=== PATIENT | male | born 2000 | race American Indian/Alaskan Native ===

== ENCOUNTER 2021-11-08 11:50 | Inpatient (IN) | payer SELFPAY ==
[2021-11-08] MEDS ORDERED: ONDANSETRON 4 MG/2 ML INJ IV ONE ×2 (14:21→19:35)
[2021-11-08] MEDS ORDERED: MORPHINE 4 MG/1 ML INJ IV ONE ×2 (14:22→19:34)
[2021-11-08 15:29] LABS: Basophils % (Auto) 0.3 % (0.0-1.8); Eosinophils % (Auto) 0.1 % (0.0-4.3); Hematocrit 39.7 % (35.5-45.6); Hemoglobin 12.8 gm/dl (11.8-15.2); Lymphocytes # (Auto) 2.5 K/mm3 (1.2-5.4); Lymphocytes % (Auto) 24.6 % (13.4-35.0); Mean Corpuscular HGB Conc 32 % (32-34); Mean Corpuscular Volume 92 fl (84-94); Monocytes # (Auto) 1.2 K/mm3 (0.0-0.8); Monocytes % (Auto) 12.1 % (0.0-7.3); Platelet Count 475 K/mm3 (140-440); Red Cell Distribution Width 14.5 % (13.2-15.2)
[2021-11-08 16:44] LABS: Alanine Aminotransferase 13 units/L (7-56); Albumin 3.6 g/dL (3.9-5); BUN/Creatinine Ratio 9; Blood Urea Nitrogen 8 mg/dL (9-20); Calcium 8.5 mg/dL (8.4-10.2); Hemolysis Index 35
[2021-11-08 17:30] LABS: Bilirubin,Urine NEG (Negative); Blood,Urine MOD (Negative); Color,Urine Yellow (Yellow); Mucus,Urine FEW /HPF
--- NOTE | 2021-11-08 19:02 | Cat Scan Report ---
CT ABDOMEN AND PELVIS WITH IV CONTRAST INDICATION: abd pain 100 ML OMNI 300 . COMPARISON: None available. TECHNIQUE: Axial CT images were obtained through the abdomen and pelvis after 100 mL Omnipaque [address] scans at this location are performed using CT dose reduction for ALARA by means of automated e xposure control. FINDINGS -- ABDOMEN: Lung Bases: No acute abnormality. Heart appears mildly enlarged Liver: Normal. Gallbladder: Removed. Bile Ducts: Normal. Pancreas: Normal. Spleen: Normal. Adrenals: Normal. Right Kidney and Proximal Ureter: Normal. Left Kidney and Proximal Ureter: Normal. Stomach and Bowel: Normal. Lymph Nodes: Prominent periaortic retroperitoneal adenopathy throughout the abdomen and pelvis. Adeno harsh extends into both iliac and obturator cristel chains.. Aorta: No significant abnormality. IVC: Normal. Additional Findings: None. FINDINGS -- PELVIS: Urinary Bladder and Distal Ureters: Normal. Reproductive Organs: No acute abnormality. Appendix: Normal. Bowel: There is a peripherally enhancing fluid collection surrounding the lateral and posterior aspects of the distal rectum.. Free Fluid: None. Lymph Nodes: Severe bilateral inguinal adenopathy.. Additional Findings: None. Skeletal System: No acute abnormality. IMPRESSION: 1. Large perirectal abscess measuring about 6 x 2 cm, as outlined above. 2. Moderate to severe bilateral inguinal adenopathy. Severe intra-abdominal and intrapelvic retroperi toneal adenopathy. 3. Cardiomegaly. Signer Name: Abe Shelley MD Signed: 11/08/2021 6:58 PM Workstation Name: [id number]
[2021-11-08] MEDS ORDERED: PIPERACIL/TAZOBACTA 4.5/NS 100 4.5 GM/100 ML VIAL IV ONE (19:35)
[2021-11-08] MEDS ORDERED: SODIUM CHLORIDE 0.9% 1000 ML 1,000 ML IV SCH (19:45)
--- NOTE | 2021-11-08 20:03 | Emergency Department Report ---
ED Abdominal Pain HPI - General Chief Complaint: Abdominal Pain Stated Complaint: PAIN,DISCOMFORT Time Seen by Provider: 11/08/21 14:12 Source: patient Mode of arrival: Ambulatory Limitations: No Limitations - History of Present Illness Initial Comments: 21-year-old black male patient with a past medical history of HIV positive which was just diagnosed last year and for which he is not currently taking any medication presents to the emergency department for evaluation of 4-day history of worsening abdominal pain and rectal pain. He states that for the past 4 days he has not been able to have a bowel movement. He states that whenever he attempts to have a bowel movement he has severe pain to his rectal area and it seems like just liquid comes out but no stool. He denies fever nausea vomiting penile discharge. He states that pain is at its worse is 8 out of 10. MD Complaint: abdominal pain -: Gradual, days(s) (4) Location: LLQ, RLQ Severity: severe Severity scale (0 -10): 7 Quality: aching Consistency: constant Associated Symptoms: constipation. denies: nausea, vomiting, fever, dysuria, hematemesis, hematochezia, melena, hematuria - Related Data Allergies Allergy/AdvReac Type Severity Reaction Status Date / Time No Known Allergies Allergy Verified 11/08/21 14:03 ED Review of Systems ROS: Stated complaint: PAIN,DISCOMFORT Other details as noted in HPI Comment: All other systems reviewed and negative Constitutional: diaphoresis. denies: chills, fever, weakness Respiratory: denies: cough, shortness of breath, SOB with exertion, SOB at rest, wheezing Cardiovascular: denies: chest pain, palpitations, dyspnea on exertion, edema, syncope Endocrine: no symptoms reported Gastrointestinal: abdominal pain, constipation. denies: nausea, vomiting, diarrhea, hematemesis, melena, hematochezia Genitourinary: denies: urgency, dysuria, frequency, hematuria, discharge, te sticular pain Skin: denies: lesions Neurological: denies: headache, weakness ED Past Medical Hx - Past Medical History Previous Medical History?: No Hx HIV: Yes - Surgical History Past Surgical History?: No ED Physical Exam - General Limitations: No Limitations General appearance: alert, in no apparent distress - Head Head exam: Present: atraumatic, normocephalic - Eye Eye exam: Present: normal appearance. Absent: conjunctival injection - Neck Neck exam: Present: normal inspection - Respiratory Respiratory exam: Present: normal lung sounds bilaterally. Absent: respiratory distress, wheezes, rales, chest wall tenderness, accessory muscle use - Cardiovascular Cardiovascular Exam: Present: regular rate, normal heart sounds - GI/Abdominal GI/Abdominal exam: Present: soft, tenderness (Right lower and left lower quadrants), normal bowel sounds. Absent: distended, guarding, rebound, rigid - Extremities Exam Extremities exam: Present: normal inspection, full ROM - Back Exam Back exam: Present: normal inspection, full ROM. Absent: tenderness, CVA tenderness (R), CVA tenderness (L) - Neurological Exam Neurological exam: Present: alert, oriented X3 - Psychiatric Psychiatric exam: Present: normal affect, normal mood - Skin Skin exam: Present: warm, dry, intact ED Course Vital Signs 11/08/21 11/08/21 13:55 20:07 Temperature 98.7 F Pulse Rate 95 H Respiratory 14 20 Rate Blood Pressure 118/66 O2 Sat by Pulse 98 Oximetry ED Medical Decision Making - Lab Data Result diagrams: 11/08/21 15:11 11/08/21 15:11 - Radiology Data Radiology results: report reviewed CT abdomen and pelvis positive for large 6 cm x 2 cm perirectal abscess - Medical Decision Making 21-year-old black male patient with a past medical history of HIV positive which was just diagnosed last year and for which he is not currently taking any medication presents to the emergency department for evaluation of 4-day history of worsening abdominal pain and rectal pain. He states that for the past 4 days he has not been able to have a bowel movement. He states that whenever he attempts to have a bowel movement he has severe pain to his rectal area and it seems like just liquid comes out but no stool. He denies fever nausea vomiting penile discharge. He states that pain is at its worse is [address] abdomen and pelvis positive for large 6 cm x 2 cm perirectal abscess. Case discussed with Dr. Palacios general surgery who states that patient should be admitted for IV antibiotics overnight and possibly surgical evacuation of abscess in the a.m. Call placed to Dr. Anne ROSAS for admission. Plan was discussed with patient who agreed with and understood plan of care. Critical care attestation.: If time is entered above; I have spent that time in minutes in the direct care of this critically ill patient, excluding procedure time. ED Disposition Clinical Impression: Perirectal abscess Disposition: ADMITTED INPATIENT Is pt being admited?: Yes Does the pt Need Aspirin: No Additional Instructions: Patient to be admitted by [facility] service for general surgery to see in the a.m. Referrals: PRIMARY CARE, [Primary Care Provider] - 3-5 Days Time of Disposition: 20:53
[2021-11-08] MEDS ORDERED: ACETAMINOPHEN 325 MG TAB PO PRN (21:50)
[2021-11-08] MEDS ORDERED: ALBUTEROL 2.5 MG/3 ML NEBU IH PRN (21:50)
[2021-11-08] MEDS ORDERED: ONDANSETRON 4 MG/2 ML INJ IV PRN (21:50)
--- NOTE | 2021-11-08 21:59 | History and Physical Report ---
History of Present Illness Date of examination: 11/08/21 Date of admission: 11/08/21 Chief complaint: Abdominal and rectal pain History of present illness: 21-year-old black male history of HIV positive not on any retroviral medication was brought to the emergency department for evaluation of 4-day history of worsening abdominal pain and rectal pain. He states that for the past 4 days he has not been able to have a bowel movement. He states that whenever he attempts to have a bowel movement he has severe pain to his rectal area and it seems like just liquid comes out but no stool. He denies fever nausea vomiting penile discharge. He states that pain is at its worse is 8 out of 10. In the emergency room patient WBC is 10.2, CT abdomen and pelvis positive for large 6 cm x 2 cm perirectal abscess. Case discussed with Dr. Mix general surgery who states that patient should be admitted for IV antibiotics overnight and possibly surgical evacuation of abscess in the a.m. Past History Past Medical History: HIV/AIDS, other Medications and Allergies Allergies Allergy/AdvReac Type Severity Reaction Status Date / Time No Known Allergies Allergy Verified 11/08/21 14:03 Active Meds: Active Medications Sodium Chloride (Nacl 0.9% 1000 Ml) 1,000 mls @ 150 mls/hr IV DIRECT GARRETT Review of Systems Gastrointestinal: abdominal pain, constipation, other (Rectal pain) Exam - Constitutional Vitals: Temp Pulse Resp BP Pulse Ox 98.7 F 95 H 20 118/66 98 11/08/21 13:55 11/08/21 13:55 11/08/21 20:07 11/08/21 13:55 11/08/21 13:55 General appearance: Present: no acute distress, well-nourished - EENT Eyes: Present: PERRL ENT: hearing intact, clear oral mucosa - Neck Neck: Present: supple, normal ROM - Respiratory Respiratory effort: normal Respiratory: bilateral: diminished - Cardiovascular Heart Sounds: Present: S1 & S2. Absent: rub, click - Extremities Extremities: pulses symmetrical, No edema Peripheral Pulses: within normal limits - Abdominal General gastrointestinal: Present: soft, non-tender, non-distended, normal bowel sounds Male genitourinary: Present: normal - Integumentary Integumentary: Present: clear, warm, dry - Musculoskeletal Musculoskeletal: gait normal, strength equal bilaterally - Psychiatric Psychiatric: appropriate mood/affect, intact judgment & insight - Neurologic Neurologic: CNII-XII intact, moves all extremities Results - Labs CBC & Chem 7: 11/08/21 15:11 11/08/21 15:11 Labs: Laboratory Last Values WBC 10.2 K/mm3 (4.5-11.0) 11/08/21 15:11 RBC 4.30 M/mm3 (3.65-5.03) 11/08/21 15:11 Hgb 12.8 gm/dl (11.8-15.2) 11/08/21 15:11 Hct 39.7 % (35.5-45.6) 11/08/21 15:11 MCV 92 fl (84-94) 11/08/21 15:11 MCH 30 pg (28-32) 11/08/21 15:11 MCHC 32 % (32-34) 11/08/21 15:11 RDW 14.5 % (13.2-15.2) 11/08/21 15:11 Plt Count 475 K/mm3 (140-440) H 11/08/21 15:11 Lymph % (Auto) 24.6 % (13.4-35.0) 11/08/21 15:11 [place] % (Auto) 12.1 % (0.0-7.3) H 11/08/21 15:11 Eos % (Auto) 0.1 % (0.0-4.3) 11/08/21 15:11 Baso % (Auto) 0.3 % (0.0-1.8) 11/08/21 15:11 Lymph # (Auto) 2.5 K/mm3 (1.2-5.4) 11/08/21 15:11 [place] # (Auto) 1.2 K/mm3 (0.0-0.8) H 11/08/21 15:11 Eos # (Auto) 0.0 K/mm3 (0.0-0.4) 11/08/21 15:11 Baso # (Auto) 0.0 K/mm3 (0.0-0.1) 11/08/21 15:11 Seg Neutrophils % 62.9 % (40.0-70.0) 11/08/21 15:11 Seg Neutrophils # 6.4 K/mm3 (1.8-7.7) 11/08/21 15:11 Sodium 135 mmol/L (137-145) L 11/08/21 15:11 Potassium 4.1 mmol/L (3.6-5.0) 11/08/21 15:11 Chloride 99.4 mmol/L (98-107) 11/08/21 15:11 Carbon Dioxide 24 mmol/L (22-30) 11/08/21 15:11 Anion Gap 16 mmol/L 11/08/21 15:11 BUN 8 mg/dL (9-20) L 11/08/21 15:11 Creatinine 0.9 mg/dL (0.8-1.3) 11/08/21 15:11 Estimated GFR > 60 ml/min 11/08/21 15:11 BUN/Creatinine Ratio 9 % 11/08/21 15:11 Glucose 85 mg/dL (75-100) 11/08/21 15:11 Calcium 8.5 mg/dL (8.4-10.2) 11/08/21 15:11 Total Bilirubin 0.50 mg/dL (0.1-1.2) 11/08/21 15:11 AST 25 units/L (5-40) 11/08/21 15:11 ALT 13 units/L (7-56) 11/08/21 15:11 Alkaline Phosphatase 89 units/L (35-129) 11/08/21 15:11 Total Protein 8.5 g/dL (6.3-8.2) H 11/08/21 15:11 Albumin 3.6 g/dL (3.9-5) L 11/08/21 15:11 Albumin/Globulin Ratio 0.7 % 11/08/21 15:11 Lipase 21 units/L (13-60) 11/08/21 15:11 Urine Color Yellow (Yellow) 11/08/21 Unknown Urine Turbidity Clear (Clear) 11/08/21 Unknown Urine pH 5.0 (5.0-7.0) 11/08/21 Unknown Ur Specific [place] 1.021 (1.003-1.030) 11/08/21 Unknown Urine Protein 30 mg/dl mg/dL (Negative) 11/08/21 Unknown Urine Glucose (UA) Neg mg/dL (Negative) 11/08/21 Unknown Urine Ketones Neg mg/dL (Negative) 11/08/21 Unknown Urine Blood Mod (Negative) 11/08/21 Unknown Urine Nitrite Neg (Negative) 11/08/21 Unknown Urine Bilirubin Neg (Negative) 11/08/21 Unknown Urine Urobilinogen 4.0 mg/dL (<2.0) 11/08/21 Unknown Ur Leukocyte Esterase Neg (Negative) 11/08/21 Unknown Urine WBC (Auto) 2.0 /HPF (0.0-6.0) 11/08/21 Unknown Urine RBC (Auto) 1.0 /HPF (0.0-6.0) 11/08/21 Unknown U Epithel Cells (Auto) < 1.0 /HPF (0-13.0) 11/08/21 Unknown Urine Mucus Few /HPF 11/08/21 Unknown - Imaging and Cardiology CT scan - abdomen: report reviewed Assessment and Plan VTE prophylaxis?: Chemical Plan of care discussed with patient/family: Yes - Patient Problems (1) Perirectal abscess Current Visit: Yes Status: Acute Plan to address problem: [facility] NPO. D5 half-normal saline at the rate of 100 cc/h. Morphine 2 mg IV every 6 4 hours as needed. Zosyn 4.5 g IV every 8 hours. Flagyl 500 mg IV every 8 hours. Reconsult surgery for evaluation (2) Abdominal pain Current Visit: Yes Status: Acute Plan to address problem: NPO. D5 half-normal saline at the rate of 100 cc/h. Morphine 2 mg IV every 6 4 hours as needed. Zosyn 4.5 g IV every 8 hours. Flagyl 500 mg IV every 8 hours. Reconsult surgery for evaluation (3) HIV (human immunodeficiency virus infection) Current Visit: Yes Status: Acute Plan to address problem: Stable. Patient not on any HIV medication. Outpatient follow-up with infectious disease (4) DVT prophylaxis Current Visit: Yes Status: Acute Plan to address problem: Heparin 5000 units subcu every 12 hours for DVT prophylaxis. Pepcid 20 mg IV every 12 hours for GI prophylaxis. Patient is a full code
[2021-11-08] MEDS ORDERED: metroNIDAZOLE/NS 500 MG/100 ML 500 MG/100 ML BAG IV SCH (22:00)
[2021-11-09] MEDS: MORPHINE 2 MG/1 ML INJ IV PRN ×2 (01:11→09:53)
[2021-11-09] MEDS: HYDROmorphone 1 MG/1 ML INJ IV PRN (02:25)
[2021-11-09] MEDS: PIPERACIL/TAZOBACTA 4.5/NS 100 4.5 GM/100 ML VIAL IV SCH ×2 (05:13→13:30)
[2021-11-09 05:48] LABS: Basophils % (Auto) 0.4 % (0.0-1.8); Eosinophils % (Auto) 0.2 % (0.0-4.3); Hematocrit 34.3 % (35.5-45.6); Hemoglobin 11.6 gm/dl (11.8-15.2); Lymphocytes # (Auto) 1.5 K/mm3 (1.2-5.4); Lymphocytes % (Auto) 19.6 % (13.4-35.0); Mean Corpuscular HGB Conc 34 % (32-34); Mean Corpuscular Volume 90 fl (84-94); Monocytes # (Auto) 0.6 K/mm3 (0.0-0.8); Monocytes % (Auto) 7.9 % (0.0-7.3); Platelet Count 408 K/mm3 (140-440); Red Blood Count 3.81 M/mm3 (3.65-5.03); Red Cell Distribution Width 14.2 % (13.2-15.2)
[2021-11-09 06:15] LABS: BUN/Creatinine Ratio 7; Blood Urea Nitrogen 7 mg/dL (9-20); Calcium 8.1 mg/dL (8.4-10.2); Hemolysis Index 0
[2021-11-09] MEDS: D5W/0.45% NACL 1,000 ML IV SCH (06:25)
[2021-11-09] MEDS: IPRATROPIUM/ALBUTEROL SULFATE 3 ML AMPUL.NEB IH SCH ×3 (09:52→14:34)
[2021-11-09] MEDS: HEPARIN 5,000 UNIT/1 ML VIAL SUB-Q SCH ×3 (09:52→23:42)
[2021-11-09] MEDS: FAMOTIDINE 20 MG/2 ML INJ IV SCH ×3 (09:52→23:42)
[2021-11-09] MEDS ORDERED: LACTATED RINGERS 0 ML ONE (10:34)
--- NOTE | 2021-11-09 11:18 | Consultation ---
History of Present Illness Consult date: 11/09/21 Chief complaint: rectal pain - History of present illness History of present illness: 21-year-old male who was diagnosed last year with HIV, however not currently receiving treatment, who presents to the emergency room for 4 days of rectal pain. The pain has gradually gotten worse. It is an 8 out of 10 in severity. He has never had anything like this before. It is difficult to have a bowel movement due to severe pain. He is passing liquid bowel movements. No fevers, chills, nausea, vomiting at home. Patient is febrile here. CT scan of the abdomen and pelvis reveals a 6 cm perirectal abscess. Surgery is consulted for evaluation. Past History Past Medical History: HIV/AIDS, other Medications and Allergies Allergies Allergy/AdvReac Type Severity Reaction Status Date / Time No Known Allergies Allergy Verified 11/08/21 14:03 Home Medications Medication Instructions Recorded Confirmed Last Taken Type No Known Home Medications [No 11/09/21 11/09/21 Unknown History Reported Home Medications] Active Meds: Active Medications Acetaminophen (Acetaminophen 325 Mg Tab) 650 mg PO Q4H PRN PRN Reason: Pain MILD(1-3)/Fever >100.5/BUENROSTRO Albuterol (Albuterol 2.5 Mg/3 Ml Nebu) 2.5 mg IH Q3HRT PRN PRN Reason: Shortness Of Breath Albuterol/Ipratropium (Ipratropium/Albuterol Sulfate 3 Ml Ampul.Neb) 1 ampul IH Q6HRT [facility] Last Admin: 11/09/21 09:57 Dose: 1 ampul Famotidine (Famotidine 20 Mg/2 Ml Inj) 20 mg IV BID [facility] Last Admin: 11/09/21 09:52 Dose: 20 mg Heparin Sodium (Porcine) (Heparin 5,000 Unit/1 Ml Vial) 5,000 unit SUB-Q Q12HR [facility] Last Admin: 11/09/21 09:52 Dose: 5,000 unit Hydromorphone HCl (Hydromorphone 1 Mg/1 Ml Inj) 0.5 mg IV Q3H PRN PRN Reason: Pain , Severe (7-10) Last Admin: 11/09/21 02:25 Dose: 0.5 mg Sodium Chloride (Nacl 0.9% 1000 Ml) 1,000 mls @ 150 mls/hr IV DIRECT [facility] Last Admin: 11/09/21 02:26 Dose: 150 mls/hr Dextrose/Sodium Chloride (D5/0.45ns) 1,000 mls @ 100 mls/hr IV DIRECT GARRETT Last Admin: 11/09/21 06:25 Dose: 100 mls/hr Piperacillin Sod/Tazobactam Sod (Zosyn/Ns 4.5gm/100ml) 4.5 gm in 100 mls @ 200 mls/hr IV Q8H GARRETT; Protocol Last Admin: 11/09/21 05:13 Dose: 200 mls/hr Morphine Sulfate (Morphine 2 Mg/1 Ml Inj) 2 mg IV Q4H PRN PRN Reason: Pain, Moderate (4-6) Last Admin: 11/09/21 09:53 Dose: 2 mg Ondansetron HCl (Ondansetron 4 Mg/2 Ml Inj) 4 mg IV Q8H PRN PRN Reason: Nausea And Vomiting Sodium Chloride (Sodium Chloride 0.9% 10 Ml Flush Syringe) 10 ml IV BID GARRETT Last Admin: 11/09/21 09:53 Dose: 10 ml Sodium Chloride (Sodium Chloride 0.9% 10 Ml Flush Syringe) 10 ml IV PRN PRN PRN Reason: LINE FLUSH Review of Systems All systems: negative (10 point ROS performed and negative except that listed in HPI) Exam Vital Signs Temp Pulse Resp BP Pulse Ox 98.7 F 95 H 14 118/66 98 11/08/21 13:55 11/08/21 13:55 11/08/21 13:55 11/08/21 13:55 11/08/21 13:55 Narrative exam: Gen.: Awake, alert, oriented x3. No apparent distress ENT: Trachea midline. No lymphadenopathy. No scleral icterus or conjunctival pallor CV: S1, S2 present Respiratory: No audible wheezes Extremities: No clubbing, cyanosis, edema Rectal: With high rigger present: External exam is grossly normal. Rectal exam reveals fluctuance posteriorly with tenderness to palpation. No drainage. No gross blood. Normal rectal tone. Results - Labs 11/09/21 04:10 11/09/21 04:10 Abnormal lab results 11/08/21 11/08/21 11/09/21 Range/Units 15:11 15:11 04:10 Hgb 11.6 L (11.8-15.2) gm/dl Hct 34.3 L (35.5-45.6) % Plt Count 475 H (140-440) K/mm3 [place] % (Auto) 12.1 H 7.9 H (0.0-7.3) % [place] # (Auto) 1.2 H (0.0-0.8) K/mm3 Seg Neutrophils % 71.9 H (40.0-70.0) % Sodium 135 L (137-145) mmol/L BUN 8 L (9-20) mg/dL Calcium (8.4-10.2) mg/dL Total Protein 8.5 H (6.3-8.2) g/dL Albumin 3.6 L (3.9-5) g/dL 11/09/21 Range/Units 04:10 Hgb (11.8-15.2) gm/dl Hct (35.5-45.6) % Plt Count (140-440) K/mm3 [place] % (Auto) (0.0-7.3) % [place] # (Auto) (0.0-0.8) K/mm3 Seg Neutrophils % (40.0-70.0) % Sodium 132 L (137-145) mmol/L BUN 7 L (9-20) mg/dL Calcium 8.1 L (8.4-10.2) mg/dL Total Protein (6.3-8.2) g/dL Albumin (3.9-5) g/dL Diabetes panel 11/08/21 11/09/21 Range/Units 15:11 04:10 Sodium 135 L 132 L (137-145) mmol/L Potassium 4.1 3.7 (3.6-5.0) mmol/L Chloride 99.4 99.4 (98-107) mmol/L Carbon Dioxide 24 24 (22-30) mmol/L BUN 8 L 7 L (9-20) mg/dL Creatinine 0.9 1.0 (0.8-1.3) mg/dL Glucose 85 87 (75-100) mg/dL Calcium 8.5 8.1 L (8.4-10.2) mg/dL AST 25 (5-40) units/L ALT 13 (7-56) units/L Alkaline Phosphatase 89 (35-129) units/L Total Protein 8.5 H (6.3-8.2) g/dL Albumin 3.6 L (3.9-5) g/dL Calcium panel 11/08/21 11/09/21 Range/Units 15:11 04:10 Calcium 8.5 8.1 L (8.4-10.2) mg/dL Albumin 3.6 L (3.9-5) g/dL Pituitary panel 11/08/21 11/09/21 Range/Units 15:11 04:10 Sodium 135 L 132 L (137-145) mmol/L Potassium 4.1 3.7 (3.6-5.0) mmol/L Chloride 99.4 99.4 (98-107) mmol/L Carbon Dioxide 24 24 (22-30) mmol/L BUN 8 L 7 L (9-20) mg/dL Creatinine 0.9 1.0 (0.8-1.3) mg/dL Glucose 85 87 (75-100) mg/dL Calcium 8.5 8.1 L (8.4-10.2) mg/dL Adrenal panel 11/08/21 11/09/21 Range/Units 15:11 04:10 Sodium 135 L 132 L (137-145) mmol/L Potassium 4.1 3.7 (3.6-5.0) mmol/L Chloride 99.4 99.4 (98-107) mmol/L Carbon Dioxide 24 24 (22-30) mmol/L BUN 8 L 7 L (9-20) mg/dL Creatinine 0.9 1.0 (0.8-1.3) mg/dL Glucose 85 87 (75-100) mg/dL Calcium 8.5 8.1 L (8.4-10.2) mg/dL Total Bilirubin 0.50 (0.1-1.2) mg/dL AST 25 (5-40) units/L ALT 13 (7-56) units/L Alkaline Phosphatase 89 (35-129) units/L Total Protein 8.5 H (6.3-8.2) g/dL Albumin 3.6 L (3.9-5) g/dL - Imaging CT scan - abdomen: report reviewed, image reviewed CT scan - pelvis: report reviewed, image reviewed Assessment and Plan 21 yo M with 1. HIV - not on medication 2. perirectal abscess 3. sepsis 2/2 #2 Plan: 1. NPO 2. IVF 3. IV abx 4. prn pain control 5. bowel regimen 6. recommend drainage of perirectal abscess. Fluctuance palpable on exam so will attempt transrectal drainage in OR. Discussed with patient and questions answered. Consent obtained. 7. If unable to drain surgically, IR available for percutaneous drainage - discu ssed with Dr. Montez. Thank you for this consultation. Please call with any questions or concerns. Evaluation and treatment of this patient was during the time of the national and state emergency arising from COVID19 coronavirus pandemic. Treatment and procedures performed meet the current and available best practice and guidelines for patient during the COVID pandemic.
[2021-11-09] MEDS ORDERED: HYDROmorphone 1 MG/1 ML INJ IV PRN ×2 (12:24)
[2021-11-09] MEDS ORDERED: ONDANSETRON 4 MG/2 ML INJ IV PRN (12:24)
[2021-11-09] MEDS ORDERED: ACETAMINOPHEN 500 MG TAB PO ONE (12:24)
[2021-11-09] MEDS ORDERED: MORPHINE 2 MG/1 ML INJ IV ONE (12:25)
--- NOTE | 2021-11-09 12:25 | Anesthesia Day of Surgery ---
Anesthesia Day of Surgery - Day of Surgery Patient Examined: Yes Patient H&P Reviewed: Yes Patient is NPO: Yes
--- NOTE | 2021-11-09 12:26 | Anesthesia Consultation ---
Anesthesia Consult and Med Hx Date of service: 11/09/21 - Airway Anesthetic Teeth Evaluation: Good ROM Head & Neck: Adequate Mental/Hyoid Distance: Adequate Mallampati Class: Class II Intubation Access Assessment: Good - Pre-Operative Health Status ASA Pre-Surgery Classification: ASA2 Proposed Anesthetic Plan: General - Pulmonary Hx Smoking: Yes Hx Asthma: No COPD: No Hx Pneumonia: No - Central Nervous System Hx Psychiatric Problems: Yes - Gastrointestinal Hx Ulcer: Yes Hx Gastroesophageal Reflux Disease: No - Endocrine Hx End Stage Renal Disease: No - Hematic Hx Sickle Cell Disease: No - Other Systems Hx Cancer: No Hx Obesity: No - Additional Comments Anesthesia Medical History Comments: HIV+
[2021-11-09] MEDS ORDERED: MIDAZOLAM 2 MG/2 ML INJ IV NR (13:00)
[2021-11-09] MEDS ORDERED: CELECOXIB 200 MG CAP PO NR (13:00)
[2021-11-09] MEDS ORDERED: BUPIVACAINE/PF (0.5%) 5 MG/1 ML 30 ML VIAL INFILTRATI ONE ×2 (13:27→17:48)
[2021-11-09] MEDS ORDERED: ROCURONIUM 50 MG/5 ML INJ IV ONE (17:17)
[2021-11-09] MEDS ORDERED: LIDOCAINE MPF (2%) 20 MG/1 ML VIAL 5 ML ONE (17:17)
[2021-11-09] MEDS ORDERED: fentaNYL 100 MCG/2 ML INJ ONE (17:17)
[2021-11-09] MEDS ORDERED: propofoL 200 MG/20 ML VIAL IV ONE (17:17)
[2021-11-09] MEDS ORDERED: SODIUM CHLORIDE 0.9% IRR 1,500 ML BOTTLE IR ONE (17:48)
[2021-11-09] MEDS ORDERED: ONDANSETRON 4 MG/2 ML INJ ONE (17:52)
[2021-11-09] MEDS ORDERED: dexAMETHasone 20 MG/5 ML VIAL ONE (17:52)
[2021-11-09] MEDS ORDERED: NEOSTIGMINE 10MG/10 ML INJ MDV ONE (17:52)
[2021-11-09] MEDS ORDERED: GLYCOPYRROLATE 0.4 MG/2 ML INJ ONE (17:52)
[2021-11-09] MEDS ORDERED: KETOROLAC 30 MG/1 ML INJ ONE (17:52)
[2021-11-09] MEDS ORDERED: LACTATED RINGERS 1,000 ML ONE (18:20)
--- NOTE | 2021-11-09 18:26 | Operative Report ---
Operative Report Operative Report: Date of surgery: 11/09/21 Preoperative diagnosis: rectal abscess Postoperative diagnosis: same as above Procedure: rectal exam under anesthesia, drainage of rectal abscess Surgeon: Bailey Mix DO Anesthesia: GETA, local Findings: large horseshoe posterior rectal abscess approximately 3 cm from anal verge EBL: 5 cc Specimen: abscess culture Complications: none Disposition:stable to PACU HPI and indication: Patient is a 21-year-old male with a past medical history of HIV, not currently on any treatment, who presented to the emergency room with rectal pain. He was found to have a large rectal abscess on CT scan of the abdomen and pelvis. It was recommended the patient undergo drainage of the rectal abscess. All risk, benefits, alternatives to surgery were discussed and questions answered. Consent obtained Procedure in detail: The patient was identified in the preoperative area, take back to the operating room. Anesthesia was induced on the stretcher and patient transferred to the operating room table in prone, jacknife position. All bony prominences were padded appropriately. The buttocks were taped apart and rectum prepped in sterile fashion. The area was draped. Time out performed. A fansler retractor was placed into the rectum. In doing so, the abscess spontaneously started to drain purulent fluid. The opening to the cavity was located posterior aspect of rectum and to the left of midline and probed. The opening was at least 1 cm wide. The cavity extended from the left of midline in the posterior aspect of the rectum and crossed midline to the right. All loculations were broken up bluntly and all purulent fluid evacuated. Cultures obtained. Area irrigated with saline and hemostasis ensured. Perianal block performed using 10cc of Local anesthetic. The area was cleansed and a peripad applied, secured with mesh underwear. At the end of the case all sponge, instrument, sharp counts were correct x2 Patient was transferred to the stretcher, extubated and taken to PACU in stable condition.
--- NOTE | 2021-11-09 19:13 | Post Anesthesia Evaluation ---
- Post Anesthesia Evaluation Patient Participated: Yes Airway Patent: Yes Stable Respiratory Function: Yes Nausea/Vomiting: No Temp > 96.8F: Yes Pain Manageable: Yes Adequeate Hydration: Yes Anesthesia Complications: No Block Receding Appropriately: Not Applicable Patient on Ventilator: No
--- NOTE | 2021-11-09 21:01 | Progress Note ---
Assessment and Plan Assessment and plan: 21-year-old black male history of HIV positive not on any retroviral medication was brought to the emergency department for evaluation of 4-day history of worsening abdominal pain and rectal pain. He states that for the past 4 days he has not been able to have a bowel movement. He states that whenever he attempts to have a bowel movement he has severe pain to his rectal area and it seems like just liquid comes out but no stool. He denies fever nausea vomiting penile discharge. He states that pain is at its worse is 8 out of 10. In the emergency room patient WBC is 10.2, CT abdomen and pelvis positive for large 6 cm x 2 cm perirectal abscess. Case discussed with Dr. Mix general surgery who states that patient should be admitted for IV antibiotics overnight and possibly surgical evacuation of abscess in the a.m. (1) Perirectal abscess Current Visit: Yes Status: Acute Plan to address problem: Admit the patient to the [facility]. NPO. D5 half-normal saline at the rate of 100 cc/h. Morphine 2 mg IV every 6 4 hours as needed. Zosyn 4.5 g IV every 8 hours. Flagyl 500 mg IV every 8 hours. Reconsult surgery for evaluation (2) Abdominal pain Current Visit: Yes Status: Acute Plan to address problem: NPO. D5 half-normal saline at the rate of 100 cc/h. Morphine 2 mg IV every 6 4 hours as needed. Zosyn 4.5 g IV every 8 hours. Flagyl 500 mg IV every 8 hours. Reconsult surgery for evaluation (3) HIV (human immunodeficiency virus infection) Current Visit: Yes Status: Acute Plan to address problem: Stable. Patient not on any HIV medication. Outpatient follow-up with infectious disease (4) DVT prophylaxis Current Visit: Yes Status: Acute Plan to address problem: Heparin 5000 units subcu every 12 hours for DVT prophylaxis. Pepcid 20 mg IV every 12 hours for GI prophylaxis. Patient is a full code Hospitalist Physical - Constitutional Vitals: Temp Pulse Resp BP Pulse Ox 97.7 F 50 L 16 105/68 100 11/09/21 18:35 11/09/21 18:35 11/09/21 18:35 11/09/21 18:35 11/09/21 18:35 General appearance: Present: no acute distress, well-nourished Results - Labs CBC & Chem 7: 11/09/21 04:10 11/09/21 04:10 Labs: Laboratory Last Values WBC 7.7 K/mm3 (4.5-11.0) 11/09/21 04:10 RBC 3.81 M/mm3 (3.65-5.03) 11/09/21 04:10 Hgb 11.6 gm/dl (11.8-15.2) L 11/09/21 04:10 Hct 34.3 % (35.5-45.6) L 11/09/21 04:10 MCV 90 fl (84-94) 11/09/21 04:10 MCH 31 pg (28-32) 11/09/21 04:10 MCHC 34 % (32-34) 11/09/21 04:10 RDW 14.2 % (13.2-15.2) 11/09/21 04:10 Plt Count 408 K/mm3 (140-440) 11/09/21 04:10 Lymph % (Auto) 19.6 % (13.4-35.0) 11/09/21 04:10 [place] % (Auto) 7.9 % (0.0-7.3) H 11/09/21 04:10 Eos % (Auto) 0.2 % (0.0-4.3) 11/09/21 04:10 Baso % (Auto) 0.4 % (0.0-1.8) 11/09/21 04:10 Lymph # (Auto) 1.5 K/mm3 (1.2-5.4) 11/09/21 04:10 [place] # (Auto) 0.6 K/mm3 (0.0-0.8) 11/09/21 04:10 Eos # (Auto) 0.0 K/mm3 (0.0-0.4) 11/09/21 04:10 Baso # (Auto) 0.0 K/mm3 (0.0-0.1) 11/09/21 04:10 Seg Neutrophils % 71.9 % (40.0-70.0) H 11/09/21 04:10 Seg Neutrophils # 5.5 K/mm3 (1.8-7.7) 11/09/21 04:10 Sodium 132 mmol/L (137-145) L 11/09/21 04:10 Potassium 3.7 mmol/L (3.6-5.0) 11/09/21 04:10 Chloride 99.4 mmol/L (98-107) 11/09/21 04:10 Carbon Dioxide 24 mmol/L (22-30) 11/09/21 04:10 Anion Gap 12 mmol/L 11/09/21 04:10 BUN 7 mg/dL (9-20) L 11/09/21 04:10 Creatinine 1.0 mg/dL (0.8-1.3) 11/09/21 04:10 Estimated GFR > 60 ml/min 11/09/21 04:10 BUN/Creatinine Ratio 7 % 11/09/21 04:10 Glucose 87 mg/dL (75-100) 11/09/21 04:10 Calcium 8.1 mg/dL (8.4-10.2) L 11/09/21 04:10 Total Bilirubin 0.50 mg/dL (0.1-1.2) 11/08/21 15:11 AST 25 units/L (5-40) 11/08/21 15:11 ALT 13 units/L (7-56) 11/08/21 15:11 Alkaline Phosphatase 89 units/L (35-129) 11/08/21 15:11 Total Protein 8.5 g/dL (6.3-8.2) H 11/08/21 15:11 Albumin 3.6 g/dL (3.9-5) L 11/08/21 15:11 Albumin/Globulin Ratio 0.7 % 11/08/21 15:11 Lipase 21 units/L (13-60) 11/08/21 15:11 Urine Color Yellow (Yellow) 11/08/21 Unknown Urine Turbidity Clear (Clear) 11/08/21 Unknown Urine pH 5.0 (5.0-7.0) 11/08/21 Unknown Ur Specific [place] 1.021 (1.003-1.030) 11/08/21 Unknown Urine Protein 30 mg/dl mg/dL (Negative) 11/08/21 Unknown Urine Glucose (UA) Neg mg/dL (Negative) 11/08/21 Unknown Urine Ketones Neg mg/dL (Negative) 11/08/21 Unknown Urine Blood Mod (Negative) 11/08/21 Unknown Urine Nitrite Neg (Negative) 11/08/21 Unknown Urine Bilirubin Neg (Negative) 11/08/21 Unknown Urine Urobilinogen 4.0 mg/dL (<2.0) 11/08/21 Unknown Ur Leukocyte Esterase Neg (Negative) 11/08/21 Unknown Urine WBC (Auto) 2.0 /HPF (0.0-6.0) 11/08/21 Unknown Urine RBC (Auto) 1.0 /HPF (0.0-6.0) 11/08/21 Unknown U Epithel Cells (Auto) < 1.0 /HPF (0-13.0) 11/08/21 Unknown Urine Mucus Few /HPF 11/08/21 Unknown Fernandez/IV: Voiding Method Toilet Active Medications - Current Medications Current Medications: Generic Name Dose Route Start Last Admin Trade Name Freq PRN Reason Stop Dose Admin Acetaminophen 650 mg 11/08/21 21:50 Acetaminophen 325 Mg Tab PO Q4H PRN Pain MILD(1-3)/Fever >100.5/BUENROSTRO Hydrocodone Bitart/Acetaminophen 1 each 11/09/21 18:13 Hydrocodone/Acetaminophen 5-325 Mg Tab PO Q4H PRN Pain, Moderate (4-6) Albuterol 2.5 mg 11/08/21 21:50 Albuterol 2.5 Mg/3 Ml Nebu IH Q3HRT PRN Shortness Of Breath Albuterol/Ipratropium 1 ampul 11/09/21 02:00 11/09/21 14:34 Ipratropium/Albuterol Sulfate 3 Ml Ampul.Neb IH Not Given Q6HRT GARRETT Celecoxib 400 mg 11/09/21 13:00 11/09/21 12:36 Celecoxib 200 Mg Cap PO 11/09/21 23:59 400 mg PREOP NR Administration Famotidine 20 mg 11/08/21 22:00 11/09/21 09:52 Famotidine 20 Mg/2 Ml Inj IV 20 mg BID GARRETT Administration Heparin Sodium (Porcine) 5,000 unit 11/08/21 22:00 11/09/21 09:52 Heparin 5,000 Unit/1 Ml Vial SUB-Q 5,000 unit Q12HR GARRETT Administration Hydromorphone HCl 0.5 mg 11/08/21 21:50 11/09/21 02:25 Hydromorphone 1 Mg/1 Ml Inj IV 0.5 mg Q3H PRN Administration Pain , Severe (7-10) Hydromorphone HCl 0.25 mg 11/09/21 12:24 Hydromorphone 1 Mg/1 Ml Inj IV Q10MIN PRN Pain, Moderate (4-6) Hydromorphone HCl 0.5 mg 11/09/21 12:24 Hydromorphone 1 Mg/1 Ml Inj IV Q10MIN PRN Pain , Severe (7-10) Dextrose/Sodium Chloride 1,000 mls @ 100 mls/hr 11/08/21 22:00 11/09/21 06:25 D5/0.45ns IV 100 mls/hr DIRECT GARRETT Administration Piperacillin Sod/Tazobactam Sod 4.5 gm in 100 mls @ 200 mls/hr 11/08/21 22:00 11/09/21 13:30 Zosyn/Ns 4.5gm/100ml IV 200 mls/hr Q8H GARRETT Administration Protocol Midazolam HCl 2 mg 11/09/21 13:00 11/09/21 14:12 Midazolam 2 Mg/2 Ml Inj IV 11/09/21 23:59 2 mg PREOP NR Administration Ondansetron HCl 4 mg 11/08/21 21:50 Ondansetron 4 Mg/2 Ml Inj IV Q8H PRN Nausea And Vomiting Ondansetron HCl 4 mg 11/09/21 12:24 Ondansetron 4 Mg/2 Ml Inj IV ONCE PRN Nausea And Vomiting Sodium Chloride 10 ml 11/08/21 22:00 11/09/21 09:53 Sodium Chloride 0.9% 10 Ml Flush Syringe IV 10 ml BID GARRETT Administration Sodium Chloride 10 ml 11/08/21 21:50 Sodium Chloride 0.9% 10 Ml Flush Syringe IV PRN PRN LINE FLUSH Nutrition/Malnutrition Assess - Dietary Evaluation Nutrition/Malnutrition Findings: Nutrition Notes Start: 11/09/21 17:35 Freq: Status: Active Protocol: Document 11/09/21 17:35 JAH (Rec: 11/09/21 17:54 JAH [id number]) Nutrition Notes Need for Assessment generated from: air transportation provider Initial or Follow up Assessment Other Pertinent Diagnosis Perirectal Abscess, Abdominal Pain, HIV/AIDS. Current Diet NPO (since 11/08 21:51). Labs/Tests 11/09: Na 132, BUN 7, Ca 8.1. Pertinent Medications 11/09: D5/0.45ns 1000 ml @ 100 ml/hr, others nutritionally unremarkable. Height 5 ft 10 in Weight 81.64 kg [place] Body Weight (kg) 75.45 BMI 25.8 Intake Prior to Admission Good Weight change and time frame Pt denies having loss body weight [employer]. Weight Status Overweight Subjective/Other Information RD consult for skin risk assessment. Pt currently on NPO. Pt shows area of concern that has been addressed for skin risk, according to Progress notes. Percent of energy/protein needs met: Pt currently on NPO. Burn Absent Trauma Absent GI Symptoms Other Food Allergy No Skin Integrity/Comment Perirectal area. Current % PO Other Minimum of two criteria No #1 Nutrition Diagnosis No nutrition diagnosis at this time Is patient on ventilator? No Is Patient Ambulatory and/or Out of Bed Yes REE-([place]. Jeor-ambulatory/OOB) [ 2362.945 NUTR.MSJOOB] Kcal/Kg value to use for calculation 20 Approximate Energy Requirements Using 1633 kcal/Kg Calculation Used for Recommendations Kcal/kg Additional Notes Protein: 1.5-2 g/Kg; 123-164 g /day. Fluids: 1 ml/Kcal, or as per MD. Nutrition Intervention Follow-Up By: 11/13/21 Additional Comments When pertinent, monitor food tolerance, %PO intake of meals , and BM.
[2021-11-10] MEDS: IPRATROPIUM/ALBUTEROL SULFATE 3 ML AMPUL.NEB IH SCH ×5 (01:39→20:53)
[2021-11-10] MEDS: HYDROmorphone 1 MG/1 ML INJ IV PRN ×2 (05:51→19:36)
[2021-11-10 07:56] LABS: Basophils % (Auto) 0.3 % (0.0-1.8); Lymphocytes # (Auto) 0.8 K/mm3 (1.2-5.4); Lymphocytes % (Auto) 11.4 % (13.4-35.0); Mean Corpuscular HGB Conc 31 % (32-34); Mean Corpuscular Volume 92 fl (84-94); Monocytes # (Auto) 0.4 K/mm3 (0.0-0.8); Monocytes % (Auto) 5.1 % (0.0-7.3); Platelet Count 456 K/mm3 (140-440); Red Blood Count 4.24 M/mm3 (3.65-5.03); Red Cell Distribution Width 14.9 % (13.2-15.2)
[2021-11-10 07:57] LABS: Hemoglobin 11.9 gm/dl (11.8-15.2)
[2021-11-10 08:11] LABS: BUN/Creatinine Ratio 14; Blood Urea Nitrogen 15 mg/dL (9-20); Calcium 8.5 mg/dL (8.4-10.2); Hemolysis Index 0
[2021-11-10] MEDS: HYDROcodone/ACETAMINOPHEN 5-325 MG TAB PO PRN ×2 (09:25→19:02)
[2021-11-10] MEDS: FAMOTIDINE 20 MG/2 ML INJ IV SCH ×2 (09:25→22:18)
[2021-11-10] MEDS: HEPARIN 5,000 UNIT/1 ML VIAL SUB-Q SCH ×2 (09:26→22:18)
[2021-11-10] MEDS: PIPERACIL/TAZOBACTA 4.5/NS 100 4.5 GM/100 ML VIAL IV SCH ×2 (11:34→11:35)
--- NOTE | 2021-11-10 12:25 | Consultation ---
History of Present Illness - Reason for Consult Consult date: 11/10/21 HIV, perirectal abscess Requesting physician: AMERICA GALVEZ - History of Present Illness The patient is a 21-year-old male with HIV, not on any medicines was admitted with abdominal rectal pain, CT revealed a perirectal abscess, seen by general surgery and underwent drainage on 11/09/2021. Infectious diseases was consulted for additional evaluation. Patient reports feeling better. HIV was diagnosed last year, states he has never been on medications due to being homeless. Risk factors include IVDU as well as bisexual behavior. Review of Systems: Per HPI Past History Past Medical History: HIV/AIDS, other Medications and Allergies Allergies Allergy/AdvReac Type Severity Reaction Status Date / Time No Known Allergies Allergy Verified 11/08/21 14:03 Home Medications Medication Instructions Recorded Confirmed Last Taken Type No Known Home Medications [No 11/09/21 11/09/21 Unknown History Reported Home Medications] Active Meds: Active Medications Acetaminophen (Acetaminophen 325 Mg Tab) 650 mg PO Q4H PRN PRN Reason: Pain MILD(1-3)/Fever >100.5/BUENROSTRO Hydrocodone Bitart/Acetaminophen (Hydrocodone/Acetaminophen 5-325 Mg Tab) 1 each PO Q4H PRN PRN Reason: Pain, Moderate (4-6) Last Admin: 11/10/21 09:25 Dose: 1 each Albuterol (Albuterol 2.5 Mg/3 Ml Nebu) 2.5 mg IH Q3HRT PRN PRN Reason: Shortness Of Breath Albuterol/Ipratropium (Ipratropium/Albuterol Sulfate 3 Ml Ampul.Neb) 1 ampul IH Q6HRT [facility] Last Admin: 11/10/21 09:32 Dose: Not Given Famotidine (Famotidine 20 Mg/2 Ml Inj) 20 mg IV BID [facility] Last Admin: 11/10/21 09:25 Dose: 20 mg Heparin Sodium (Porcine) (Heparin 5,000 Unit/1 Ml Vial) 5,000 unit SUB-Q Q12HR [facility] Last Admin: 11/10/21 09:26 Dose: 5,000 unit Hydromorphone HCl (Hydromorphone 1 Mg/1 Ml Inj) 0.5 mg IV Q3H PRN PRN Reason: Pain , Severe (7-10) Last Admin: 11/10/21 05:51 Dose: 0.5 mg Dextrose/Sodium Chloride (D5/0.45ns) 1,000 mls @ 100 mls/hr IV DIRECT GARRETT Last Admin: 11/09/21 06:25 Dose: 100 mls/hr Piperacillin Sod/Tazobactam Sod (Zosyn/Ns 4.5gm/100ml) 4.5 gm in 100 mls @ 200 mls/hr IV Q8H GARRETT; Protocol Last Admin: 11/10/21 11:35 Dose: Not Given Ondansetron HCl (Ondansetron 4 Mg/2 Ml Inj) 4 mg IV Q8H PRN PRN Reason: Nausea And Vomiting Ondansetron HCl (Ondansetron 4 Mg/2 Ml Inj) 4 mg IV ONCE PRN PRN Reason: Nausea And Vomiting Sodium Chloride (Sodium Chloride 0.9% 10 Ml Flush Syringe) 10 ml IV BID GARRETT Last Admin: 11/10/21 11:38 Dose: 10 ml Sodium Chloride (Sodium Chloride 0.9% 10 Ml Flush Syringe) 10 ml IV PRN PRN PRN Reason: LINE FLUSH Physical Examination - Physical Exam Narrative exam: Physical Exam: Constitutional: Alert, cooperative. No acute distress Head, Ears, Nose: Normocephalic, atraumatic. External ears, nose normal Eyes: Conjunctivae/corneas clear. No icterus. No ptosis. Neck: Supple, no meningeal signs Cardiovascular: S1, S2 + Respiratory: Good air entry, clear to auscultation bilaterally GI: Soft, non-tender; bowel sounds normal. No peritoneal signs Musculoskeletal: No pedal edema, no cyanosis. Skin: No rash or abscess Hem/Lymphatic: No palpable cervical or supraclavicular nodes. No lymphangitis Psych: Mood ok. Affect normal Neurological: Awake, alert, oriented. No gross abnormality - Constitutional Vitals: Vital Signs Temp Pulse Resp BP Pulse Ox 97.4 F L 48 L 17 93/41 98 11/09/21 23:11 11/10/21 07:52 11/10/21 07:52 11/09/21 23:11 11/10/21 08:41 Temperature -Last 24 Hours Temperature 97.4 F Temperature 97.7 F Temperature 97.0 F Temperature 98.0 F Temperature 98.4 F Results - Labs CBC & Chem 7: 11/10/21 06:38 11/10/21 06:38 Labs: Abnormal lab results 11/10/21 11/10/21 Range/Units 06:38 06:38 MCHC 31 L (32-34) % Plt Count 456 H (140-440) K/mm3 Lymph % (Auto) 11.4 L (13.4-35.0) % Lymph # (Auto) 0.8 L (1.2-5.4) K/mm3 Seg Neutrophils % 83.2 H (40.0-70.0) % Sodium 136 L (137-145) mmol/L Glucose 118 H (75-100) mg/dL Assessment and Plan Cultures: 11/09/2021 surgical culture: In process A/P: 21/M with: #Perirectal abscess: Status post drainage #HIV: Not on antiretroviral therapy. Diagnosed last year. #History of IVDU Recs: Antibiotics switched to IV ceftriaxone 2 g daily, PO Flagyl 500 mg TID, PO doxycycline 100 mg BID Follow-up surgical culture, if no growth, discharge on PO Augmentin 875 mg BID + PO doxycycline 100 mg BID x 7 days explained importance of HIV treatment, needs to follow up with [facility] Dean Cadena MD, FACP, [facility] O: [phone] F: [phone]
--- NOTE | 2021-11-10 14:16 | Progress Note ---
Assessment and Plan 21-year-old male status post rectal exam under anesthesia, drainage of rectal abscess, POD 1 Plan: 1. abscess cultures pending 2. abx per ID 3. sitz baths TID 4. Ok to dc from surgery standpoint once abx finalized by ID 5. Importance of follow-up in ID clinic discussed with patient for management of his HIV Thank you for this consultation. Please call with any questions or concerns. Evaluation and treatment of this patient was during the time of the national and state emergency arising from COVID19 coronavirus pandemic. Treatment and procedures performed meet the current and available best practice and guidelines for patient during the COVID pandemic. Subjective Date of service: 11/10/21 Narrative: Patient seen and examined. He is much improved. He denies pain. States there is been minimal bleeding on the dressing. He is already fully dressed and ready to go home. Afebrile. Objective Vital Signs - 12hr 11/10/21 11/10/21 11/10/21 05:37 07:52 08:41 Temperature 97.8 F Pulse Rate 43 L Pulse Rate [ 48 L Bilateral] Respiratory 18 Rate Respiratory 17 Rate [Bilateral ] Blood Pressure 100/55 O2 Sat by Pulse 100 98 Oximetry 11/10/21 11/10/21 12:01 13:28 Temperature 97.5 F L Pulse Rate 57 L Pulse Rate [ 48 L Bilateral] Respiratory 18 Rate Respiratory 19 Rate [Bilateral ] Blood Pressure 104/55 O2 Sat by Pulse 100 Oximetry - General physical appearance Narrative Exam: Gen.: Awake, alert, oriented x3. No apparent distress ENT: Trachea midline. No lymphadenopathy. No scleral icterus or conjunctival pallor CV: S1, S2 present Respiratory: No audible wheezes Extremities: No clubbing, cyanosis, edema - Labs 11/10/21 06:38 11/10/21 06:38 Diabetes panel 11/10/21 Range/Units 06:38 Sodium 136 L (137-145) mmol/L Potassium 4.7 D (3.6-5.0) mmol/L Chloride 102.0 (98-107) mmol/L Carbon Dioxide 24 (22-30) mmol/L BUN 15 (9-20) mg/dL Creatinine 1.1 (0.8-1.3) mg/dL Glucose 118 H (75-100) mg/dL Calcium 8.5 (8.4-10.2) mg/dL Calcium panel 11/10/21 Range/Units 06:38 Calcium 8.5 (8.4-10.2) mg/dL Pituitary panel 11/10/21 Range/Units 06:38 Sodium 136 L (137-145) mmol/L Potassium 4.7 D (3.6-5.0) mmol/L Chloride 102.0 (98-107) mmol/L Carbon Dioxide 24 (22-30) mmol/L BUN 15 (9-20) mg/dL Creatinine 1.1 (0.8-1.3) mg/dL Glucose 118 H (75-100) mg/dL Calcium 8.5 (8.4-10.2) mg/dL Adrenal panel 11/10/21 Range/Units 06:38 Sodium 136 L (137-145) mmol/L Potassium 4.7 D (3.6-5.0) mmol/L Chloride 102.0 (98-107) mmol/L Carbon Dioxide 24 (22-30) mmol/L BUN 15 (9-20) mg/dL Creatinine 1.1 (0.8-1.3) mg/dL Glucose 118 H (75-100) mg/dL Calcium 8.5 (8.4-10.2) mg/dL
[2021-11-10] MEDS: D5W/0.45% NACL 1,000 ML IV SCH (14:19)
[2021-11-10] MEDS: metroNIDAZOLE 500 MG TAB PO SCH ×2 (14:19→22:18)
[2021-11-10] MEDS: cefTRIAXone/NS 2 GM/100 ML 2 GM/100 ML BAG IV SCH (14:19)
[2021-11-10] MEDS: DOXYCYCLINE 100 MG CAP PO SCH ×2 (14:20→22:18)
--- NOTE | 2021-11-10 22:18 | Progress Note ---
Hospitalist Physical - Constitutional Vitals: Temp Pulse Resp BP Pulse Ox 97.8 F 74 18 101/46 98 11/10/21 21:56 11/10/21 21:56 11/10/21 21:56 11/10/21 21:56 11/10/21 21:56 General appearance: Present: no acute distress, well-nourished Results - Labs CBC & Chem 7: 11/10/21 06:38 11/10/21 06:38 Labs: Laboratory Last Values WBC 7.4 K/mm3 (4.5-11.0) 11/10/21 06:38 RBC 4.24 M/mm3 (3.65-5.03) 11/10/21 06:38 Hgb 11.9 gm/dl (11.8-15.2) 11/10/21 06:38 Hct 39.0 % (35.5-45.6) 11/10/21 06:38 MCV 92 fl (84-94) 11/10/21 06:38 MCH 28 pg (28-32) 11/10/21 06:38 MCHC 31 % (32-34) L 11/10/21 06:38 RDW 14.9 % (13.2-15.2) 11/10/21 06:38 Plt Count 456 K/mm3 (140-440) H 11/10/21 06:38 Lymph % (Auto) 11.4 % (13.4-35.0) L 11/10/21 06:38 [place] % (Auto) 5.1 % (0.0-7.3) 11/10/21 06:38 Eos % (Auto) 0.0 % (0.0-4.3) 11/10/21 06:38 Baso % (Auto) 0.3 % (0.0-1.8) 11/10/21 06:38 Lymph # (Auto) 0.8 K/mm3 (1.2-5.4) L 11/10/21 06:38 [place] # (Auto) 0.4 K/mm3 (0.0-0.8) 11/10/21 06:38 Eos # (Auto) 0.0 K/mm3 (0.0-0.4) 11/10/21 06:38 Baso # (Auto) 0.0 K/mm3 (0.0-0.1) 11/10/21 06:38 Seg Neutrophils % 83.2 % (40.0-70.0) H 11/10/21 06:38 Seg Neutrophils # 6.1 K/mm3 (1.8-7.7) 11/10/21 06:38 Sodium 136 mmol/L (137-145) L 11/10/21 06:38 Potassium 4.7 mmol/L (3.6-5.0) D 11/10/21 06:38 Chloride 102.0 mmol/L (98-107) 11/10/21 06:38 Carbon Dioxide 24 mmol/L (22-30) 11/10/21 06:38 Anion Gap 15 mmol/L 11/10/21 06:38 BUN 15 mg/dL (9-20) 11/10/21 06:38 Creatinine 1.1 mg/dL (0.8-1.3) 11/10/21 06:38 Estimated GFR > 60 ml/min 11/10/21 06:38 BUN/Creatinine Ratio 14 % 11/10/21 06:38 Glucose 118 mg/dL (75-100) H 11/10/21 06:38 Calcium 8.5 mg/dL (8.4-10.2) 11/10/21 06:38 Total Bilirubin 0.50 mg/dL (0.1-1.2) 11/08/21 15:11 AST 25 units/L (5-40) 11/08/21 15:11 ALT 13 units/L (7-56) 11/08/21 15:11 Alkaline Phosphatase 89 units/L (35-129) 11/08/21 15:11 Total Protein 8.5 g/dL (6.3-8.2) H 11/08/21 15:11 Albumin 3.6 g/dL (3.9-5) L 11/08/21 15:11 Albumin/Globulin Ratio 0.7 % 11/08/21 15:11 Lipase 21 units/L (13-60) 11/08/21 15:11 Urine Color Yellow (Yellow) 11/08/21 Unknown Urine Turbidity Clear (Clear) 11/08/21 Unknown Urine pH 5.0 (5.0-7.0) 11/08/21 Unknown Ur Specific [place] 1.021 (1.003-1.030) 11/08/21 Unknown Urine Protein 30 mg/dl mg/dL (Negative) 11/08/21 Unknown Urine Glucose (UA) Neg mg/dL (Negative) 11/08/21 Unknown Urine Ketones Neg mg/dL (Negative) 11/08/21 Unknown Urine Blood Mod (Negative) 11/08/21 Unknown Urine Nitrite Neg (Negative) 11/08/21 Unknown Urine Bilirubin Neg (Negative) 11/08/21 Unknown Urine Urobilinogen 4.0 mg/dL (<2.0) 11/08/21 Unknown Ur Leukocyte Esterase Neg (Negative) 11/08/21 Unknown Urine WBC (Auto) 2.0 /HPF (0.0-6.0) 11/08/21 Unknown Urine RBC (Auto) 1.0 /HPF (0.0-6.0) 11/08/21 Unknown U Epithel Cells (Auto) < 1.0 /HPF (0-13.0) 11/08/21 Unknown Urine Mucus Few /HPF 11/08/21 Unknown Microbiology: Microbiology 11/09/21 21:10 Rectum Anaerobic Culture - Preliminary 11/09/21 21:10 Rectum Surgical Culture - Preliminary Fernandez/IV: Voiding Method Urinal Active Medications - Current Medications Current Medications: Generic Name Dose Route Start Last Admin Trade Name Freq PRN Reason Stop Dose Admin Acetaminophen 650 mg 11/08/21 21:50 Acetaminophen 325 Mg Tab PO Q4H PRN Pain MILD(1-3)/Fever >100.5/BUENROSTRO Hydrocodone Bitart/Acetaminophen 1 each 11/09/21 18:13 11/10/21 19:02 Hydrocodone/Acetaminophen 5-325 Mg Tab PO 1 each Q4H PRN Administration Pain, Moderate (4-6) Albuterol 2.5 mg 11/08/21 21:50 Albuterol 2.5 Mg/3 Ml Nebu IH Q3HRT PRN Shortness Of Breath Albuterol/Ipratropium 1 ampul 11/09/21 02:00 11/10/21 20:53 Ipratropium/Albuterol Sulfate 3 Ml Ampul.Neb IH 1 ampul Q6HRT GARRETT Administration Doxycycline Hyclate 100 mg 11/10/21 13:00 11/10/21 14:20 Doxycycline 100 Mg Cap PO 100 mg BID GARRETT Administration Protocol Famotidine 20 mg 11/08/21 22:00 11/10/21 09:25 Famotidine 20 Mg/2 Ml Inj IV 20 mg BID GARRETT Administration Heparin Sodium (Porcine) 5,000 unit 11/08/21 22:00 11/10/21 09:26 Heparin 5,000 Unit/1 Ml Vial SUB-Q 5,000 unit Q12HR GARRETT Administration Hydromorphone HCl 0.5 mg 11/08/21 21:50 11/10/21 19:36 Hydromorphone 1 Mg/1 Ml Inj IV 0.5 mg Q3H PRN Administration Pain , Severe (7-10) Dextrose/Sodium Chloride 1,000 mls @ 100 mls/hr 11/08/21 22:00 11/10/21 14:19 D5/0.45ns IV 100 mls/hr DIRECT GARRETT Administration Ceftriaxone Sodium 2 gm in 100 mls @ 200 mls/hr 11/10/21 13:00 11/10/21 14:19 Rocephin/Ns 2 Gm/100 Ml IV 200 mls/hr Q24HR GARRETT Administration Protocol Metronidazole 500 mg 11/10/21 14:00 11/10/21 14:19 Metronidazole 500 Mg Tab PO 500 mg Q8HR GARRETT Administration Protocol Ondansetron HCl 4 mg 11/08/21 21:50 Ondansetron 4 Mg/2 Ml Inj IV Q8H PRN Nausea And Vomiting Ondansetron HCl 4 mg 11/09/21 12:24 Ondansetron 4 Mg/2 Ml Inj IV ONCE PRN Nausea And Vomiting Sodium Chloride 10 ml 11/08/21 22:00 11/10/21 11:38 Sodium Chloride 0.9% 10 Ml Flush Syringe IV 10 ml BID GARRETT Administration Sodium Chloride 10 ml 11/08/21 21:50 Sodium Chloride 0.9% 10 Ml Flush Syringe IV PRN PRN LINE FLUSH Nutrition/Malnutrition Assess - Dietary Evaluation Nutrition/Malnutrition Findings: Nutrition Notes Start: 11/09/21 17:35 Freq: Status: Active Protocol: Document 11/09/21 17:35 JAH (Rec: 11/09/21 17:54 JAH [id number]) Nutrition Notes Need for Assessment generated from: rn lpn lvn Initial or Follow up Assessment Other Pertinent Diagnosis Perirectal Abscess, Abdominal Pain, HIV/AIDS. Current Diet NPO (since 11/08 21:51). Labs/Tests 11/09: Na 132, BUN 7, Ca 8.1. Pertinent Medications 11/09: D5/0.45ns 1000 ml @ 100 ml/hr, others nutritionally unremarkable. Height 5 ft 10 in Weight 81.64 kg [place] Body Weight (kg) 75.45 BMI 25.8 Intake Prior to Admission Good Weight change and time frame Pt denies having loss body weight [employer]. Weight Status Overweight Subjective/Other Information RD consult for skin risk assessment. Pt currently on NPO. Pt shows area of concern that has been addressed for skin risk, according to Progress notes. Percent of energy/protein needs met: Pt currently on NPO. Burn Absent Trauma Absent GI Symptoms Other Food Allergy No Skin Integrity/Comment Perirectal area. Current % PO Other Minimum of two criteria No #1 Nutrition Diagnosis No nutrition diagnosis at this time Is patient on ventilator? No Is Patient Ambulatory and/or Out of Bed Yes REE-([facility]-ambulatory/OOB) [ 2362.945 NUTR.MSJOOB] Kcal/Kg value to use for calculation 20 Approximate Energy Requirements Using 1633 kcal/Kg Calculation Used for Recommendations Kcal/kg Additional Notes Protein: 1.5-2 g/Kg; 123-164 g /day. Fluids: 1 ml/Kcal, or as per MD. Nutrition Intervention Follow-Up By: 11/13/21 Additional Comments When pertinent, monitor food tolerance, %PO intake of meals , and BM.
[2021-11-11] MEDS: IPRATROPIUM/ALBUTEROL SULFATE 3 ML AMPUL.NEB IH SCH ×4 (03:41→21:26)
[2021-11-11] MEDS: metroNIDAZOLE 500 MG TAB PO SCH ×3 (06:20→21:17)
[2021-11-11] MEDS: cefTRIAXone/NS 2 GM/100 ML 2 GM/100 ML BAG IV SCH (09:03)
[2021-11-11] MEDS: DOXYCYCLINE 100 MG CAP PO SCH ×2 (09:03→21:17)
[2021-11-11] MEDS: FAMOTIDINE 20 MG TAB PO SCH ×2 (09:04→21:16)
[2021-11-11] MEDS: HEPARIN 5,000 UNIT/1 ML VIAL SUB-Q SCH ×2 (09:04→21:17)
[2021-11-11] MEDS: HYDROcodone/ACETAMINOPHEN 5-325 MG TAB PO PRN ×2 (09:04→18:23)
--- NOTE | 2021-11-11 20:28 | Progress Note ---
Hospitalist Physical - Constitutional Vitals: Temp Pulse Resp BP Pulse Ox 97.5 F L 67 18 109/49 100 11/11/21 17:50 11/11/21 17:50 11/11/21 19:23 11/11/21 17:50 11/11/21 17:50 General appearance: Present: no acute distress, well-nourished Results - Labs CBC & Chem 7: 11/10/21 06:38 11/10/21 06:38 Labs: Laboratory Last Values WBC 7.4 K/mm3 (4.5-11.0) 11/10/21 06:38 RBC 4.24 M/mm3 (3.65-5.03) 11/10/21 06:38 Hgb 11.9 gm/dl (11.8-15.2) 11/10/21 06:38 Hct 39.0 % (35.5-45.6) 11/10/21 06:38 MCV 92 fl (84-94) 11/10/21 06:38 MCH 28 pg (28-32) 11/10/21 06:38 MCHC 31 % (32-34) L 11/10/21 06:38 RDW 14.9 % (13.2-15.2) 11/10/21 06:38 Plt Count 456 K/mm3 (140-440) H 11/10/21 06:38 Lymph % (Auto) 11.4 % (13.4-35.0) L 11/10/21 06:38 [place] % (Auto) 5.1 % (0.0-7.3) 11/10/21 06:38 Eos % (Auto) 0.0 % (0.0-4.3) 11/10/21 06:38 Baso % (Auto) 0.3 % (0.0-1.8) 11/10/21 06:38 Lymph # (Auto) 0.8 K/mm3 (1.2-5.4) L 11/10/21 06:38 [place] # (Auto) 0.4 K/mm3 (0.0-0.8) 11/10/21 06:38 Eos # (Auto) 0.0 K/mm3 (0.0-0.4) 11/10/21 06:38 Baso # (Auto) 0.0 K/mm3 (0.0-0.1) 11/10/21 06:38 Seg Neutrophils % 83.2 % (40.0-70.0) H 11/10/21 06:38 Seg Neutrophils # 6.1 K/mm3 (1.8-7.7) 11/10/21 06:38 Sodium 136 mmol/L (137-145) L 11/10/21 06:38 Potassium 4.7 mmol/L (3.6-5.0) D 11/10/21 06:38 Chloride 102.0 mmol/L (98-107) 11/10/21 06:38 Carbon Dioxide 24 mmol/L (22-30) 11/10/21 06:38 Anion Gap 15 mmol/L 11/10/21 06:38 BUN 15 mg/dL (9-20) 11/10/21 06:38 Creatinine 1.1 mg/dL (0.8-1.3) 11/10/21 06:38 Estimated GFR > 60 ml/min 11/10/21 06:38 BUN/Creatinine Ratio 14 % 11/10/21 06:38 Glucose 118 mg/dL (75-100) H 11/10/21 06:38 Calcium 8.5 mg/dL (8.4-10.2) 11/10/21 06:38 Total Bilirubin 0.50 mg/dL (0.1-1.2) 11/08/21 15:11 AST 25 units/L (5-40) 11/08/21 15:11 ALT 13 units/L (7-56) 11/08/21 15:11 Alkaline Phosphatase 89 units/L (35-129) 11/08/21 15:11 Total Protein 8.5 g/dL (6.3-8.2) H 11/08/21 15:11 Albumin 3.6 g/dL (3.9-5) L 11/08/21 15:11 Albumin/Globulin Ratio 0.7 % 11/08/21 15:11 Lipase 21 units/L (13-60) 11/08/21 15:11 Urine Color Yellow (Yellow) 11/08/21 Unknown Urine Turbidity Clear (Clear) 11/08/21 Unknown Urine pH 5.0 (5.0-7.0) 11/08/21 Unknown Ur Specific [place] 1.021 (1.003-1.030) 11/08/21 Unknown Urine Protein 30 mg/dl mg/dL (Negative) 11/08/21 Unknown Urine Glucose (UA) Neg mg/dL (Negative) 11/08/21 Unknown Urine Ketones Neg mg/dL (Negative) 11/08/21 Unknown Urine Blood Mod (Negative) 11/08/21 Unknown Urine Nitrite Neg (Negative) 11/08/21 Unknown Urine Bilirubin Neg (Negative) 11/08/21 Unknown Urine Urobilinogen 4.0 mg/dL (<2.0) 11/08/21 Unknown Ur Leukocyte Esterase Neg (Negative) 11/08/21 Unknown Urine WBC (Auto) 2.0 /HPF (0.0-6.0) 11/08/21 Unknown Urine RBC (Auto) 1.0 /HPF (0.0-6.0) 11/08/21 Unknown U Epithel Cells (Auto) < 1.0 /HPF (0-13.0) 11/08/21 Unknown Urine Mucus Few /HPF 11/08/21 Unknown Microbiology: Microbiology 11/09/21 21:10 Rectum Surgical Culture - Preliminary Gram Negative Shmuel Fernandez/IV: Voiding Method Toilet Active Medications - Current Medications Current Medications: Generic Name Dose Route Start Last Admin Trade Name Freq PRN Reason Stop Dose Admin Acetaminophen 650 mg 11/08/21 21:50 Acetaminophen 325 Mg Tab PO Q4H PRN Pain MILD(1-3)/Fever >100.5/BUENROSTRO Hydrocodone Bitart/Acetaminophen 1 each 11/09/21 18:13 11/11/21 18:23 Hydrocodone/Acetaminophen 5-325 Mg Tab PO 1 each Q4H PRN Administration Pain, Moderate (4-6) Albuterol 2.5 mg 11/08/21 21:50 Albuterol 2.5 Mg/3 Ml Nebu IH Q3HRT PRN Shortness Of Breath Albuterol/Ipratropium 1 ampul 11/09/21 02:00 11/11/21 14:39 Ipratropium/Albuterol Sulfate 3 Ml Ampul.Neb IH Not Given Q6HRT [facility] Doxycycline Hyclate 100 mg 11/10/21 13:00 11/11/21 09:03 Doxycycline 100 Mg Cap PO 100 mg BID GARRETT Administration Protocol Famotidine 20 mg 11/11/21 10:00 11/11/21 09:04 Famotidine 20 Mg Tab PO 20 mg BID GARRETT Administration Heparin Sodium (Porcine) 5,000 unit 11/08/21 22:00 11/11/21 09:04 Heparin 5,000 Unit/1 Ml Vial SUB-Q 5,000 unit Q12HR GARRETT Administration Hydromorphone HCl 0.5 mg 11/08/21 21:50 11/10/21 19:36 Hydromorphone 1 Mg/1 Ml Inj IV 0.5 mg Q3H PRN Administration Pain , Severe (7-10) Dextrose/Sodium Chloride 1,000 mls @ 100 mls/hr 11/08/21 22:00 11/10/21 14:19 D5/0.45ns IV 100 mls/hr DIRECT GARRETT Administration Ceftriaxone Sodium 2 gm in 100 mls @ 200 mls/hr 11/10/21 13:00 11/11/21 09:03 Rocephin/Ns 2 Gm/100 Ml IV 200 mls/hr Q24HR GARRETT Administration Protocol Metronidazole 500 mg 11/10/21 14:00 11/11/21 14:15 Metronidazole 500 Mg Tab PO 500 mg Q8HR GARRETT Administration Protocol Ondansetron HCl 4 mg 11/08/21 21:50 Ondansetron 4 Mg/2 Ml Inj IV Q8H PRN Nausea And Vomiting Ondansetron HCl 4 mg 11/09/21 12:24 Ondansetron 4 Mg/2 Ml Inj IV ONCE PRN Nausea And Vomiting Sodium Chloride 10 ml 11/08/21 22:00 11/11/21 09:04 Sodium Chloride 0.9% 10 Ml Flush Syringe IV 10 ml BID GARRETT Administration Sodium Chloride 10 ml 11/08/21 21:50 Sodium Chloride 0.9% 10 Ml Flush Syringe IV PRN PRN LINE FLUSH Nutrition/Malnutrition Assess - Dietary Evaluation Nutrition/Malnutrition Findings: Nutrition Notes Start: 11/09/21 17:35 Freq: Status: Active Protocol: Document 11/09/21 17:35 JAH (Rec: 11/09/21 17:54 JAH [email or web address]) Nutrition Notes 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 Current Diet NPO (since 11/08 21:51). Labs/Tests 11/09: Na 132, BUN 7, Ca 8.1. Pertinent Medications 11/09: D5/0.45ns 1000 ml @ 100 ml/hr, others nutritionally unremarkable. Height 5 ft 10 in Weight 81.64 kg [place] Body Weight (kg) 75.45 BMI 25.8 Intake Prior to Admission Good Weight change and time frame Pt denies having loss body weight [employer]OP[employer]IC[employer]. Weight Status Overweight Subjective/Other Information RD consult for skin risk assessment. Pt currently on NPO. Pt shows area of concern that has been addressed for skin risk, according to Progress notes. Percent of energy/protein needs met: Pt currently on NPO. Burn Absent Trauma Absent GI Symptoms Other Food Allergy No Skin Integrity/Comment Perirectal area. Current % PO Other Minimum of two criteria No #1 Nutrition Diagnosis No nutrition diagnosis at this time Is patient on ventilator? No Is Patient Ambulatory and/or Out of Bed Yes REE-([place]. Jeor-ambulatory/OOB) [ 2362.945 [id number]] Kcal/Kg value to use for calculation 20 Approximate Energy Requirements Using 1633 kcal/Kg Calculation Used for Recommendations Kcal/kg Additional Notes Protein: 1.5-2 g/Kg; 123-164 g /day. Fluids: 1 ml/Kcal, or as per MD. Nutrition Intervention Follow-Up By: 11/13/21 Additional Comments When pertinent, monitor food tolerance, %PO intake of meals , and BM.
[2021-11-12] MEDS: IPRATROPIUM/ALBUTEROL SULFATE 3 ML AMPUL.NEB IH SCH ×3 (01:36→14:39)
[2021-11-12] MEDS: metroNIDAZOLE 500 MG TAB PO SCH ×2 (05:13→13:46)
[2021-11-12 06:45] VITALS: BP 103/62
[2021-11-12] MEDS: DOXYCYCLINE 100 MG CAP PO SCH (09:22)
[2021-11-12] MEDS: HEPARIN 5,000 UNIT/1 ML VIAL SUB-Q SCH (09:22)
[2021-11-12] MEDS: FAMOTIDINE 20 MG TAB PO SCH (09:23)
[2021-11-12] MEDS: cefTRIAXone/NS 2 GM/100 ML 2 GM/100 ML BAG IV SCH (09:24)
--- NOTE | 2021-11-12 17:04 | Discharge Summary ---
Providers - Providers Date of Admission: 11/08/21 21:50 Attending physician: MYLENE GALVEZ MD 11/08/21 21:50 Consult to Physician [CONS] Routine Comment: Consulting Provider: MAYCO NARAYANAN Physician Instructions: Reason For Exam: Perirectal abscess 11/10/21 08:51 Consult to Physician [CONS] Routine Comment: Consulting Provider: TAYLA CEDILLO Physician Instructions: Reason For Exam: Rectal abscess, HIV off meds Primary care physician: HEPATOLOGIST Hospitalization Condition: Stable Hospital course: 21-year-old male with a past medical history of HIV, not currently on any treatment, who presented to the emergency room with rectal pain. He was found to have a large rectal abscess on CT scan of the abdomen and pelvis. Dr. Narayanan, general surgeon was consulted and underwent IND via rectum and noted to have a large horseshoe posterior rectal abscess approximately 3 cm from annual verge on 11/09/2021. Patient did well postoperatively with immediate relief of the pain. There was no significant drainage postoperatively. Patient did have some BMs. Fever resolved. Blood cultures were negative. He was tolerating diet. Surgical cultures grew streptococci, pansensitive as well as E. coli. ID consulted and followed. Patient was receiving IV antibiotic therapy pending E. coli culture sensitivity report. His discharge was deferred awaiting E. coli antibiotic sensitivity report, however patient left AMA. Large projectile abscess, s/p I&D History of HIV infection off antiretroviral therapy, patient was advised to seek therapy at [facility]. Patient left AMA Disposition: LEFT AGAINST MEDICAL ADVICE Exam - Constitutional Vitals: Temp Pulse Resp BP Pulse Ox 98.2 F 55 L 18 103/62 98 11/12/21 04:09 11/12/21 04:09 11/12/21 04:09 11/12/21 04:09 11/12/21 08:44 General appearance: Present: no acute distress - EENT Eyes: Present: EOM intact ENT: clear oral mucosa - Neck Neck: Present: supple - Respiratory Respiratory effort: normal Respiratory: bilateral: CTA - Cardiovascular Rhythm: regular - Extremities Extremities: No edema - Abdominal General gastrointestinal: Present: soft, non-tender, non-distended, normal bowel sounds - Integumentary Integumentary: Absent: rash - Musculoskeletal Musculoskeletal: strength equal bilaterally - Neurologic Neurologic: no focal deficits, moves all extremities Plan Follow up with: PRIMARY CARE, [Primary Care Provider] - 3-5 Days
== END 2021-11-12 15:36 | disposition left against medical advice (07) | DRG 970 ==
LOC: ED 11:50 → 3A 21:50
PROVIDERS: ADMIT Hospitalist; ATTEND Internal Medicine
PROC: 0D9P0ZZ Drainage of Rectum, Open Approach (ICD-10-PCS; principal; 2021-11-09)
DX: A41.9 Sepsis, unspecified organism (principal); B20 Human immunodeficiency virus [HIV] disease; K61.1 Rectal abscess
CPT/HCPCS: 36415; 74177; 80048; 80053; 81001; 83690; 85025; 87075; 87076; 87116; 87186; 94640; G0378; J1815; J3490; J7070; J7120; Q0162; J0696; J1100; J1170; J1644; J1885; J2250; J2270; J2405; J2543; J2704; J2710; J3010; J7030; Q9967

== ENCOUNTER 2022-05-18 10:32 | Emergency (ER) | payer SELFPAY ==
[2022-05-18] MEDS ORDERED: SODIUM CHLORIDE 0.9% 1000 ML 1,000 ML IV ONE (11:46)
--- NOTE | 2022-05-18 12:19 | Emergency Department Report ---
ED Syncope HPI - General Chief Complaint: Syncope Stated Complaint: SYNCOPAL EPISODE Time Seen by Provider: 05/18/22 11:22 - History of Present Illness Initial Comments: 27-year-old male with a history of illicit drug use who came in this morning with syncope episode x3. Patient also mentioned that when he felt dizzy and fell he did struck his head on the floor. He however denies any headache or visual changes. Patient reported that he has not slept for the last 10 days and been doing methamphetamine every day since then. Patient also reports right groin swelling and tenderness that been going on for the last couple of days. Patient has history of HIV and not on any medications. Patient denies any fever or chills. - Related Data Allergies/Adverse Reactions: Allergies No Known Allergies Allergy (Verified 11/08/21 14:03) Home Medications: Ambulatory Orders Ketorolac [Toradol] 10 mg PO Q6H PRN 6 Days #24 tab NS 05/18/22 ED Review of Systems ROS: Stated complaint: SYNCOPAL EPISODE Other details as noted in HPI Comment: All other systems reviewed and negative Respiratory: denies: shortness of breath Cardiovascular: syncope. denies: chest pain, palpitations Gastrointestinal: abdominal pain (Right groin pain with swelling) ED Past Medical Hx - Past Medical History Hx Congestive Heart Failure: No Hx Diabetes: No Hx Sickle Cell Disease: No Hx Asthma: No Hx COPD: No Hx HIV: Yes - Social History Smoking Status: Current Every Day Smoker Substance Use Type: Alcohol, Methamphetamines - Medications Home Medications: Home Medications Medication Instructions Recorded Confirmed Last Taken Type Ketorolac [Toradol] 10 mg PO Q6H PRN 6 Days #24 tab NS 05/18/22 Unknown Rx ED Physical Exam - General Limitations: No Limitations General appearance: alert, in no apparent distress - Head Head exam: Present: normal inspection - Eye Eye exam: Present: normal appearance Pupils: Present: normal accommodation - ENT ENT exam: Present: normal exam, normal orophraynx, mucous membranes dry - Neck Neck exam: Present: normal inspection, full ROM. Absent: tenderness, meningismus - Respiratory Respiratory exam: Present: normal lung sounds bilaterally. Absent: respiratory distress, accessory muscle use - Cardiovascular Cardiovascular Exam: Present: regular rate, normal rhythm, normal heart sounds - GI/Abdominal GI/Abdominal exam: Present: soft, tenderness (right groin area tenderness with appreciable swelling without erythema ), normal bowel sounds. Absent: distended - Extremities Exam Extremities exam: Present: normal inspection, full ROM, normal capillary refill. Absent: tenderness, pedal edema - Back Exam Back exam: Absent: tenderness - Neurological Exam Neurological exam: Present: alert, oriented X3 - Psychiatric Psychiatric exam: Present: normal affect, normal mood - Skin Skin exam: Present: warm, normal color ED Course Vital Signs 05/18/22 05/18/22 05/18/22 10:33 11:20 11:31 Temperature 98.0 F Pulse Rate 116 H 109 H Respiratory 16 22 Rate Blood Pressure 132/81 115/71 Blood Pressure 132/81 [Left] O2 Sat by Pulse 99 100 95 Oximetry 05/18/22 11:35 Temperature Pulse Rate 112 H Respiratory 18 Rate Blood Pressure Blood Pressure 115/71 [Left] O2 Sat by Pulse 99 Oximetry ED Medical Decision Making - Lab Data Result diagrams: 05/18/22 11:54 05/18/22 11:54 - Radiology Data FINDINGS: Lungs/bones: Lung bases are clear. No acute osseous abnormality identified. Abdomen/pelvis: The liver, gallbladder, spleen, pancreas, adrenals, and proximal GI tract appear unremarkable. A few tiny simple cysts are seen in the kidneys. Urinary bladder and prostate are unremarkable. No pelvic free fluid or recurrent abscess. There is extensive bilateral inguinal adenopathy once again as well as several prominent lymph nodes throughout the pelvis in the retroperitoneum. IMPRESSION: 1. No acute abnormality identified. There is again extensive adenopathy most notably in the right pelvis with the patient is complaining of pain. Given the superficial nature, consider follow-up tissue sampling to exclude the possibility of underlying neoplasia such as lymphoma. - Medical Decision Making Here with syncope episode after sleepless night and day for the last 10 days this is likely vasovagal related to dehydration or as a result of drug side effect--but differential could be and not limited to seizure, symptomatic anemia, myocardial infarction, pulmonary embolism, anxiety, CVA especially posterior stroke or thyroid abnormality--in order to rule those out I will go ahead and order routine cardiopulmonary work-up that include troponin, EKG, chest x-ray, BNP, CKMB, and CBC, CMP, Urinalysis and thyroid panel for any correctable infectious process or electrolyte abnormality as a cause. Will also order CT brain for any intracranial abnormality as mentioned above. In the meantime will give ivf ns 1L bolus for hydration as most are dehydrated in the hot weather anyway. Also noted with right groin area tenderness with appreciable swelling without erythema -- will also get CT abd/pel -- for further evaluation and treatment -- concern for inguinal hernial vs groin lymphadenitis considering his history of HIV-- -- Noted with mild leukocytosislikely reactive UDS noted with positive cocaine and methamphetamine likely the culprit regarding his symptoms--patient reassured after her IV hydration and warned against using illicit drug use and the effect on his general health CT abd/pel noted with FINDINGS: Lungs/bones: Lung bases are clear. No acute osseous abnormality identified. Abdomen/pelvis: The liver, gallbladder, spleen, pancreas, adrenals, and proximal GI tract appear unremarkable. A few tiny simple cysts are seen in the kidneys. Urinary bladder and prostate are unremarkable. No pelvic free fluid or recurrent abscess. There is extensive bilateral inguinal adenopathy once again as well as several prominent lymph nodes throughout the pelvis in the retroperitoneum. IMPRESSION: 1. No acute abnormality identified. There is again extensive adenopathy most notably in the right pelvis with the patient is complaining of pain. Given the superficial nature, consider follow-up tissue sampling to exclude the possibility of underlying neoplasia such as lymphoma. Critical care attestation.: If time is entered above; I have spent that time in minutes in the direct care of this critically ill patient, excluding procedure time. ED Disposition Clinical Impression: Syncope and collapse, Right groin pain, Cocaine abuse, Amphetamine abuse, Inguinal adenopathy Disposition: 01 HOME / SELF CARE / HOMELESS Is pt being admited?: No Does the pt Need Aspirin: No Condition: Stable Instructions: Stimulant Use Disorder-Cocaine, Near-Syncope, [id number], Methamphetamines Use Disorder, Syncope (ED), Lymphadenopathy Additional Instructions: Avoid use or abuse of illicit drug to prevent negative effect on your overall health Increase your daily fluids to help your hydration It is equally important to call and schedule follow-up with your primary doctor in the next 3 to 5 days for progress and also discus the adenopathy findings on your CT abd/pelvic as you might need to follow up with Oncology for biopsy. Do not hesitate to call or return to emergency room if your symptoms worsen Prescriptions: Ketorolac [Toradol] 10 mg PO Q6H PRN 6 Days #24 tab NS PRN Reason: Pain Referrals: PRIMARY CARE, [Primary Care Provider] - 3-5 Days Time of Disposition: 17:45
[2022-05-18 12:48] LABS: Basophils # (Auto) 0.1 K/mm3 (0.0-0.1); Basophils % (Auto) 0.6 % (0.0-1.8); Eosinophils # (Auto) 0.1 K/mm3 (0.0-0.4); Eosinophils % (Auto) 0.8 % (0.0-4.3); Hematocrit 37.5 % (35.5-45.6); Hemoglobin 11.8 gm/dl (11.8-15.2); Lymphocytes % (Auto) 8.9 % (13.4-35.0); Mean Corpuscular HGB Conc 31 % (32-34); Mean Corpuscular Volume 75 fl (84-94); Monocytes % (Auto) 9.3 % (0.0-7.3); Platelet Count 285 K/mm3 (140-440); Red Blood Count 5.04 M/mm3 (3.65-5.03); Red Cell Distribution Width 14.8 % (13.2-15.2)
[2022-05-18 12:49] LABS: Alanine Aminotransferase 20 units/L (7-56); Albumin 4.5 g/dL (3.9-5); BUN/Creatinine Ratio 10; Blood Urea Nitrogen 13 mg/dL (9-20); Hemolysis Index 0
[2022-05-18 12:55] LABS: INR 1.1 (0.87-1.13)
[2022-05-18 12:56] LABS: Partial Thromboplastin Time 29.7 Sec. (24.2-36.6)
[2022-05-18 13:21] LABS: Free T4 (Free Thyroxine) 1.16 ng/dL (0.76-1.46)
[2022-05-18 14:08] LABS: Benzodiazepines Screen,Urine Negative; Cannabinoid Screen,Urine Negative; Methadone Screen,Urine Negative; Opiate Screen,Urine Negative
[2022-05-18 14:45] LABS: Amphetamine Screen,Urine Positive; Cocaine Screen,Urine Positive
--- NOTE | 2022-05-18 16:10 | Cat Scan Report ---
CT ABDOMEN AND PELVIS WITH CONTRAST HISTORY: right groin pain and tenderness 100ml of [id number]. COMPARISON: CT abdomen/pelvis from 11/08/2021 TECHNIQUE: CT images of the abdomen and pelvis were obtained following administration of intravenous contrast. All CT scans at this location are performed using CT dose reduction for ALARA by means of automated exposure control. CONTRAST: 100 ml of intravenous contrast administered. FINDINGS: Lungs/bones: Lung bases are clear. No acute osseous abnormality identified. Abdomen/pelvis: The liver, gallbladder, spleen, pancreas, adrenals, and proximal GI tract appear unr emarkable. A few tiny simple cysts are seen in the kidneys. Urinary bladder and prostate are unremarkable. No pelvic free fluid or recurrent abscess. There is extensive bilateral inguinal adenopathy once again as well as several prominent lymph nodes throughout the pelvis in the retroperitoneum. IMPRESSION: 1. No acute abnormality identified. There is again extensive adenopathy most notably in the right pel vis with the patient is complaining of pain. Given the superficial nature, consider follow-up tissue sampling to exclude the possibility of underlying neoplasia such as lymphoma. Signer Name: Ruslan Carbajal MD Signed: 05/18/2022 4:05 PM Workstation Name: [id number]
[2022-05-18 17:55] VITALS: BP 123/67
--- NOTE | 2022-05-18 22:53 | Electrocardiograph Report ---
[facility] Test Date: 2022-05-18 Test Time: 12:21:46 Pat Name: LUIGI POST Department: Room: Gender: M Order Processing Clerk: FERNANDO : 1995-03-09 Requested By: SUSY CHAMPION Order Number: [id number] Reading MD: Rom Kelly Measurements Intervals [place] Rate: 105 P: 81 CA: 145 QRS: 60 QRSD: 86 T: 65 QT: 316 QTc: 418 Interpretive Statements Sinus tachycardia ST elev, probable normal early repol pattern No previous ECG available for comparison Electronically Signed On 05-18-2022 22:53:15 EDT by Rom Kelly
== END 2022-05-18 17:55 | disposition home or self-care (01) ==
LOC: ED 10:32
DX: R55 Syncope and collapse (principal); R10.31 Right lower quadrant pain; F14.10 Cocaine abuse, uncomplicated; F15.10 Other stimulant abuse, uncomplicated; R59.0 Localized enlarged lymph nodes; F17.200 Nicotine dependence, unspecified, uncomplicated; Z79.899 Other long term (current) drug therapy
CPT/HCPCS: 36415; 74177; 80053; 80307; 84439; 84443; 84484; 85025; 85610; 85730; 93005; 96360; 99284; J7030; Q9967

== ENCOUNTER 2022-05-20 16:30 | Emergency (ER) | payer SELFPAY ==
[2022-05-20 18:38] LABS: Basophils % (Auto) 0.3 % (0.0-1.8); Eosinophils # (Auto) 0.3 K/mm3 (0.0-0.4); Eosinophils % (Auto) 6.1 % (0.0-4.3); Hematocrit 34.5 % (35.5-45.6); Hemoglobin 10.8 gm/dl (11.8-15.2); Lymphocytes # (Auto) 1.3 K/mm3 (1.2-5.4); Lymphocytes % (Auto) 25.3 % (13.4-35.0); Mean Corpuscular HGB Conc 31 % (32-34); Mean Corpuscular Volume 75 fl (84-94); Monocytes # (Auto) 0.7 K/mm3 (0.0-0.8); Monocytes % (Auto) 14.6 % (0.0-7.3); Platelet Count 250 K/mm3 (140-440); Red Blood Count 4.64 M/mm3 (3.65-5.03); Red Cell Distribution Width 14.9 % (13.2-15.2)
[2022-05-20 20:34] LABS: BUN/Creatinine Ratio 7; Blood Urea Nitrogen 8 mg/dL (9-20); Calcium 8.7 mg/dL (8.4-10.2); Hemolysis Index 2
--- NOTE | 2022-05-20 21:03 | Emergency Department Report ---
ED General Adult HPI - General Chief complaint: Psych Stated complaint: MONEY POX /SUICIDAL PUI?: No Time Seen by Provider: 05/20/22 17:51 Source: patient, EMS Mode of arrival: Stretcher Limitations: No Limitations - History of Present Illness Initial comments: Pt presents with C/O SI, non-compliant with bipolar meds -: Gradual Consistency: intermittent Improves with: none Worsens with: none - Related Data Home Medications Medication Instructions Recorded Confirmed Last Taken No Known Home Medications [No 05/20/22 05/20/22 Unknown Reported Home Medications] Allergies Allergy/AdvReac Type Severity Reaction Status Date / Time No Known Allergies Allergy Verified 11/08/21 14:03 ED Review of Systems ROS: Stated complaint: MONEY POX /SUICIDAL Other details as noted in HPI Constitutional: denies: chills, fever Eyes: denies: eye pain, eye discharge, vision change ENT: denies: ear pain, throat pain Respiratory: denies: cough, shortness of breath, wheezing Cardiovascular: denies: chest pain, palpitations Endocrine: no symptoms reported Gastrointestinal: denies: abdominal pain, nausea, diarrhea Genitourinary: denies: urgency, dysuria Musculoskeletal: denies: back pain, joint swelling, arthralgia Skin: denies: rash, lesions Neurological: denies: headache, weakness, paresthesias Psychiatric: denies: anxiety, depression Hematological/Lymphatic: denies: easy bleeding, easy bruising ED Past Medical Hx - Past Medical History Hx Congestive Heart Failure: No Hx Diabetes: No Hx Sickle Cell Disease: No Hx Psychiatric Treatment: Yes (bipolar) Hx Asthma: No Hx COPD: No Hx HIV: Yes - Social History Smoking Status: Never Smoker Substance Use Type: Methamphetamines - Medications Home Medications: Home Medications Medication Instructions Recorded Confirmed Last Taken Type No Known Home Medications [No 05/20/22 05/20/22 Unknown History Reported Home Medications] ED Physical Exam - General Limitations: No Limitations General appearance: alert, in no apparent distress - Head Head exam: Present: atraumatic, normocephalic - Eye Eye exam: Present: normal appearance - ENT ENT exam: Present: mucous membranes moist - Neck Neck exam: Present: normal inspection - Respiratory Respiratory exam: Present: normal lung sounds bilaterally. Absent: respiratory distress - Cardiovascular Cardiovascular Exam: Present: regular rate, normal rhythm. Absent: systolic murmur, diastolic murmur, rubs, gallop - GI/Abdominal GI/Abdominal exam: Present: soft, normal bowel sounds - Rectal Rectal exam: Present: deferred - Extremities Exam Extremities exam: Present: normal inspection - Back Exam Back exam: Present: normal inspection - Neurological Exam Neurological exam: Present: alert, oriented X3 - Psychiatric Psychiatric exam: Present: normal affect, normal mood - Skin Skin exam: Present: warm, dry, intact, normal color. Absent: rash ED Course Vital Signs 05/20/22 05/20/22 17:02 17:52 Temperature 98.5 F Pulse Rate 79 Respiratory 18 Rate Blood Pressure 124/72 [Left] O2 Sat by Pulse 98 98 Oximetry ED Medical Decision Making - Lab Data Result diagrams: 05/20/22 18:17 05/20/22 18:17 Critical care attestation.: If time is entered above; I have spent that time in minutes in the direct care of this critically ill patient, excluding procedure time. ED Disposition Clinical Impression: Bipolar disorder Disposition: 30 STILL A PATIENT Is pt being admited?: No Does the pt Need Aspirin: No Condition: Stable
--- NOTE | 2022-05-21 10:39 | Consultation ---
History of Present Illness - Reason for Consult Consult date: 05/21/22 Reason for consult: suicidal ideation - History of Present Psychiatric Illness The patient is a 27 year old male with history of schizophrenia, and Bipolar disorder who presents to the ED with suicidal ideation. The patient was seen today. He is calm and cooperative. He reports having suicidal ideation x1 month; he is non compliant with psychotropic meds. The patient daily use of meth x 3 years; snorts about 1 gram of meth daily; last used meth 2 days ago. He reports history of multiple rehab. admissions. He endorses suicidal ideation with a plan " to hang myself." No obvious withdrawal symptoms noted. PAST PSYCHIATRIC HISTORY Diagnoses: schizophrenia, Bipolar Suicide attempts or Self-harm behavior: No Prior psychiatric hospitalizations: Yes Substance Abuse history: methamphetamines Previous psychiatric medications tried:unknown Outpatient treatment: Unknown PAST MEDICAL HISTORY: None reported Family Psychiatric History: None reported or documented SOCIAL HISTORY Marital Status: single Living Arrangements: Lives with grand mother Employment Status: Unemployed Access to guns/weapons: Denies Education: 12th grade History of Abuse: Denies Legal History: Denies REVIEW OF SYSTEMS Constitutional: Negative for weight loss ENT: Negative for stridor Respiratory: Negative for cough or hemoptysis All other systems reviewed and are negative MENTAL STATUS EXAMINATION General Appearance and Behavior: Age appropriate, good hygiene, wearing appropriate clothes, good eye contact, calm, cooperative Cooperation: Participating/engaged Psychomotor Behavior: Psychomotor normal Mood: Depressed Affect and affective range: congruent with stated mood Thought Process: goal directed Thought Content: suicidal Speech: Normal tone and pace Suicidal Ideation: Yes Homicidal Ideation: Denies Hallucinations: Denies Delusions: None elicited Impulse Control: Normal Insight and Judgment: Limited insight and judgment Memory: Normal Attention: Attentive Orientation: Alert, oriented Assessment and Plan (1)Bipolar disorder (2) Methamphetamine type use disorder, severe Treatment Plan 1013 Continue home Meds Vistaril 25mg po TID Trazodone 50mg po QHS Risks, benefits and alternatives of medications discussed with the patient, questions answered and consent obtained from patient. PSYCHOTHERAPY: Supportive psychotherapy provided MEDICAL: Per primary team DELIRIUM PRECAUTIONS: Please re-orient patient frequently, keep lights on during the day, and minimize benzodiazepines and opiates as these medications could worsen patient's confusion. 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 Will follow. Thank you for the consult. Please contact with any questions and/or concerns. Case staffed with Dr. Quintanilla Medications and Allergies Medications and Allergies Allergies Allergy/AdvReac Type Severity Reaction Status Date / Time No Known Allergies Allergy Verified 11/08/21 14:03 Home Medications Medication Instructions Recorded Confirmed Last Taken Type No Known Home Medications [No 05/20/22 05/20/22 Unknown History Reported Home Medications] Mental Status Exam - Vital signs Last Vital Signs Temp 98.5 F 05/20/22 17:02 Pulse 89 05/21/22 06:39 Resp 18 05/21/22 06:39 BP 94/57 05/21/22 06:39 Pulse Ox 100 05/21/22 06:39 Results Result Diagrams: 05/20/22 18:17 05/20/22 18:17 Abnormal lab results 05/20/22 05/20/22 05/20/22 Range/Units 18:17 18:17 18:17 Hgb 10.8 L (11.8-15.2) gm/dl Hct 34.5 L (35.5-45.6) % MCV 75 L (84-94) fl MCH 23 L (28-32) pg MCHC 31 L (32-34) % Sherman % (Auto) 14.6 H (0.0-7.3) % Eos % (Auto) 6.1 H (0.0-4.3) % Sodium 136 L (137-145) mmol/L BUN 8 L (9-20) mg/dL Glucose 114 H (75-100) mg/dL Salicylates < 0.3 L (2.8-20.0) mg/dL Acetaminophen (10.0-30.0) ug/mL 05/20/22 Range/Units 18:17 Hgb (11.8-15.2) gm/dl Hct (35.5-45.6) % MCV (84-94) fl MCH (28-32) pg MCHC (32-34) % Sherman % (Auto) (0.0-7.3) % Eos % (Auto) (0.0-4.3) % Sodium (137-145) mmol/L BUN (9-20) mg/dL Glucose (75-100) mg/dL Salicylates (2.8-20.0) mg/dL Acetaminophen 5.0 L (10.0-30.0) ug/mL All other labs normal.
[2022-05-21 11:03] LABS: Mucus,Urine FEW /HPF
[2022-05-21 11:07] LABS: Color,Urine Yellow (Yellow)
[2022-05-21 11:17] LABS: Benzodiazepines Screen,Urine Negative; Cannabinoid Screen,Urine Negative; Cocaine Screen,Urine Negative; Methadone Screen,Urine Negative; Opiate Screen,Urine Negative
[2022-05-21 11:45] LABS: Amphetamine Screen,Urine Positive
--- NOTE | 2022-05-21 12:39 | Event Note ---
Date: 05/21/22 Patient presents to the emergency department for suicidal ideations. Patient was evaluated by the psychiatric team today with suggestions of acute inpatient treatment. Patient has no complaints and there were no new events overnight per nursing staff.
[2022-05-21] MEDS: hydrOXYzine PAMOATE 25 MG CAP PO SCH (14:07)
[2022-05-21] MEDS ORDERED: traZODone 50 MG TAB PO SCH (22:00)
--- NOTE | 2022-05-22 07:08 | Event Note ---
Date: 05/22/22 Patient is a 27-year-old male with history of bipolar disorder who presented to the emergency department with complaint of suicidal ideations. He is currently on a 1013 hold. This morning he denies any symptoms. Currently denies SI. Constitutional: No fever, chills, weight loss Eyes: No changes in vision, photophobia, ocular pain Cardiovascular: No chest pain, palpitations, edema Respiratory: No dyspnea, cough Gastrointestinal: No nausea, vomiting, diarrhea, abdominal pain Genitourinary: No dysuria, hematuria, polyuria Musculoskeletal: No arthralgia, myalgia Integumentary: No rashes, lesions or change in color Neurological: No focal weakness, headache or numbness Psychiatric: As per HPI General: Alert and oriented x3, no acute distress Cardiac: Regular rate, regular rhythm, no murmurs, gallops or rubs Respiratory: Clear to auscultation bilaterally, no wheezes, rales, normal work of breathing Abdomen: Soft, nontender, nondistended, normal bowel sounds Musculoskeletal: Full range of motion in all extremities, no obvious deformities, no tenderness, normal strength Back: Nontender, no step-offs, Full range of motion Skin: Warm, dry, intact, appropriate for ethnicity, no rashes or lesions Neurological: Cranial nerves II through XII grossly intact Psych: Normal mood and affect
[2022-05-22] MEDS: hydrOXYzine PAMOATE 25 MG CAP PO SCH ×2 (08:56→10:18)
--- NOTE | 2022-05-22 10:27 | Progress Note ---
Subjective - Reason for Consult Consult date: 05/22/22 Reason for consult: suicidal ideation - Chief Complaint Chief complaint: The patient was seen today. The patient continues endorse suicidal ideation with a plan to hang himself. REVIEW OF SYSTEMS Constitutional: Negative for weight loss ENT: Negative for stridor Respiratory: Negative for cough or hemoptysis All other systems reviewed and are negative MENTAL STATUS EXAMINATION General Appearance and Behavior: Age appropriate, good hygiene, wearing appropriate clothes, good eye contact, calm, cooperative Cooperation: Participating/engaged Psychomotor Behavior: Psychomotor normal Mood: Depressed Affect and affective range: congruent with stated mood Thought Process: goal directed Thought Content: suicidal Speech: Normal tone and pace Suicidal Ideation: Yes Homicidal Ideation: Denies Hallucinations: Denies Delusions: None elicited Impulse Control: Normal Insight and Judgment: Limited insight and judgment Memory: Normal Attention: Attentive Orientation: Alert, oriented Assessment and Plan (1)Bipolar disorder (2) Methamphetamine type use disorder, severe Treatment Plan 1013 Continue home Meds Sertraline 25mg po BID Vistaril 25mg po TID Trazodone 50mg po QHS Risks, benefits and alternatives of medications discussed with the patient, questions answered and consent obtained from patient. PSYCHOTHERAPY: Supportive psychotherapy provided MEDICAL: Per primary team DELIRIUM PRECAUTIONS: Please re-orient patient frequently, keep lights on during the day, and minimize benzodiazepines and opiates as these medications could worsen patient's confusion. 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 Will follow. Thank you for the consult. Please contact with any questions and/or concerns. Case staffed with Dr. Quintanilla Medications and Allergies Mental Status Exam - Vital signs Last Vital Signs Temp 98.8 F 05/21/22 18:00 Pulse 84 05/21/22 18:00 Resp 20 05/21/22 18:00 BP 118/79 05/21/22 18:00 Pulse Ox 100 05/22/22 00:00
[2022-05-22] MEDS ORDERED: SERTRALINE 25 MG TAB PO SCH (11:00)
[2022-05-22 11:38] VITALS: BP 107/61
== END 2022-05-22 13:25 ==
LOC: ED 16:30 → EEVIPCON 16:30 → ED 05-22 13:25
DX: F31.9 Bipolar disorder, unspecified (principal); Z20.822 Contact with and (suspected) exposure to COVID-19; Z79.899 Other long term (current) drug therapy
CPT/HCPCS: 36415; 80048; 80307; 81001; 85025; 99285; U0003; 80320; G0480